=== PATIENT | male | born 1995 | race Caucasian/White ===

== ENCOUNTER → 2017-02-14 | Outpatient (CLI) | payer OTHER | LOC: BMCIMAGING 18:04 | PROVIDERS: ATTEND Family Medicine | DX: S62.002A Unspecified fracture of navicular [scaphoid] bone of left wrist, initial encounter for closed fracture (principal); V00.128A Other non-in-line roller-skating accident, initial encounter; Y93.51 Activity, roller skating (inline) and skateboarding ==

== ENCOUNTER → 2017-02-19 | Outpatient (CLI) | payer OTHER | LOC: BMCIMAGING 11:51 | PROVIDERS: ATTEND Orthopaedic Surgery Hand Surgery | DX: S62.025D Nondisplaced fracture of middle third of navicular [scaphoid] bone of left wrist, subsequent encounter for fracture with routine healing (principal) ==

== ENCOUNTER → 2017-03-05 | Outpatient (CLI) | payer OTHER | LOC: BMCIMAGING 11:41 | PROVIDERS: ATTEND Orthopaedic Surgery Hand Surgery | DX: S62.025D Nondisplaced fracture of middle third of navicular [scaphoid] bone of left wrist, subsequent encounter for fracture with routine healing (principal) ==

== ENCOUNTER → 2017-03-19 | Outpatient (CLI) | payer OTHER | LOC: BMCLAB 11:08 | PROVIDERS: ATTEND Orthopaedic Surgery Hand Surgery | DX: S62.025D Nondisplaced fracture of middle third of navicular [scaphoid] bone of left wrist, subsequent encounter for fracture with routine healing (principal) ==

== ENCOUNTER → 2017-04-08 | Outpatient (CLI) | payer OTHER | LOC: BMCIMAGING 14:49 | PROVIDERS: ATTEND Orthopaedic Surgery Hand Surgery | DX: S62.022D Displaced fracture of middle third of navicular [scaphoid] bone of left wrist, subsequent encounter for fracture with routine healing (principal) ==

== ENCOUNTER → 2017-04-29 | Outpatient (CLI) | payer OTHER | LOC: BMCIMAGING 13:46 | PROVIDERS: ATTEND Orthopaedic Surgery Hand Surgery | DX: Z09 Encounter for follow-up examination after completed treatment for conditions other than malignant neoplasm (principal); S62.025D Nondisplaced fracture of middle third of navicular [scaphoid] bone of left wrist, subsequent encounter for fracture with routine healing ==

== ENCOUNTER → 2017-06-03 | Outpatient (CLI) | payer OTHER | LOC: BMCIMAGING 11:34 | PROVIDERS: ATTEND Orthopaedic Surgery Hand Surgery | DX: S62.025D Nondisplaced fracture of middle third of navicular [scaphoid] bone of left wrist, subsequent encounter for fracture with routine healing (principal) ==

== ENCOUNTER 2017-08-29 21:23 | Emergency (ER) | payer OTHER ==
--- NOTE | 2017-08-29 21:36 | EDPHY ---
H & P Time Seen by Provider: 08/29/17 21:32 HPI/ROS: CHIEF COMPLAINT: Fatigue HISTORY OF PRESENT ILLNESS: The patient is a 21-year-old man who was at school and has been working hard and not sleeping much. He also started taking Benadryl over the last few days because of allergies. He has been taking 25 mg in the morning and at night. He also takes Adderall daily. He has not taken any abnormal doses of either of these but today was telling his RA that he was tired but also trying to get a lot done. His RA felt like he was wandering around the hallway and called the ambulance who brought him here. The patient has no complaints here and states that he just needs to go sleep. He has normal vital signs. He denies significant alcohol or drug ingestion. REVIEW OF SYSTEMS: Constitutional: denies: chills, fever, recent illness, recent injury EENTM: denies: blurred vision, double vision, nose congestion Respiratory: denies: cough, shortness of breath Cardiac: denies: chest pain, irregular heart rate, lightheadedness, palpitations Gastrointestinal/Abdominal: denies: abdominal pain, diarrhea, nausea, vomiting, blood streaked stools Genitourinary: denies: dysuria, frequency, hematuria, pain Musculoskeletal: denies: joint pain, muscle pain Skin: denies: lesions, rash, jaundice, bruising Neurological: See HPI denies: headache, numbness, paresthesia, tingling, dizziness, weakness Hematologic/Lymphatic: denies: blood clots, easy bleeding, easy bruising Immunologic/allergic: denies: HIV/AIDS, transplant EXAM: GENERAL: Well-appearing, well-nourished and in no acute distress. HEAD: Atraumatic, normocephalic. EYES: Pupils equal round and reactive to light, extraocular movements intact, sclera anicteric, conjunctiva are normal. ENT: TMs normal, nares patent, oropharynx clear without exudates. Moist mucous membranes. NECK: Normal range of motion, supple without lymphadenopathy or JVD. LUNGS: Breath sounds clear to auscultation bilaterally and equal. No wheezes rales or rhonchi. HEART: Regular rate and rhythm without murmurs, rubs or gallops. ABDOMEN: Soft, nontender, normoactive bowel sounds. No guarding, no rebound. No masses appreciated. BACK: No CVA tenderness, no spinal tenderness, step-offs or deformities EXTREMITIES: Normal range of motion, no pitting or edema. No clubbing or cyanosis. NEUROLOGICAL: Cranial nerves II through XII grossly intact. Normal speech, normal gait. 5/5 strength, normal movement in all extremities, normal sensation PSYCH: Normal mood, normal affect. SKIN: Warm, dry, normal turgor, no visible rashes or lesions. Source: Patient, EMS - Medical/Surgical History Hx Asthma: No Hx Chronic Respiratory Disease: No Hx Diabetes: No Hx Cardiac Disease: No Hx Renal Disease: No Hx Cirrhosis: No Hx Alcoholism: No Other PMH: ADD, allergies - Family History Significant Family History: No pertinent family hx - Social History Smoking Status: Never smoked Alcohol Use: Sober Drug Use: None Constitutional: Initial Vital Signs Temperature (C) 36.6 C 08/29/17 21:20 Heart Rate 90 08/29/17 21:20 Respiratory Rate 18 08/29/17 21:20 Blood Pressure 153/84 H 08/29/17 21:20 O2 Sat (%) 98 08/29/17 21:20 O2 Delivery Mode Room Air Allergies/Adverse Reactions: bee venom protein (honey bee) Allergy (Verified 08/29/17 21:38) Home Medications: Medication Instructions Recorded Amphet Asp and D/Amphet [Adderall 10 mg PO DAILY 08/29/17 10 MG (*)] Medical Decision Making ED Course/Re-evaluation: Patient is currently asymptomatic now. He does not think he needs to be here. I agree. He is stable vital signs. We offered to call his friends but he would prefer to take the bus. I recommended he take Zyrtec instead of Benadryl. Differential Diagnosis: Partial list of the Differential diagnosis considered include but were not limited to; fatigue, lack of sleep, medication reaction, allergies and although unlikely based on the history and physical exam, I also considered overdose, infection, trauma. I discussed these differential diagnoses and the plan with the patient as well as the usual and expected course. The patient understands that the diagnosis is provisional and that in medicine we are not always correct and that further workup is often warranted. Usual and customary warnings were given. All of the patient's questions were answered. The patient was instructed to return to the emergency department should the symptoms at all worsen or return, otherwise to followup with the physician as we discussed. Departure - Departure Disposition: Home, Routine, Self-Care Clinical Impression: Tiredness Condition: Fair Instructions: Cetirizine (By mouth), Fatigue (ED) Referrals: Patient,NotPresent [Primary Care Provider] - As per Instructions
[2017-08-29 21:40] VITALS: BP 153/84
== END 2017-08-29 21:46 | disposition home or self-care (01) ==
LOC: EDUNIT#
DX: R53.83 Other fatigue (principal)

== ENCOUNTER 2018-06-01 13:58 | Inpatient (IN) | payer OTHER ==
--- NOTE | 2018-06-01 14:17 | EDPHY ---
HPI/HX/ROS/PE/MDM Narrative: CHIEF COMPLAINT: AMS, vomiting. HISTORY OF PRESENT ILLNESS: 22 year old male arrives via EMS after his roommate found him altered and largely unresponsive in his room earlier today. He is covered in vomitus across his face and abdomen. It is unknown whether he consumed alcohol or drugs recently. He is responsive to painful stimuli, occasionally to verbal, but his only responses are "yeah" and "fuck". He seems to admit to alcohol use, though he seems to say "yeah" to most questions and is certainly not a reliable historian at this time. Patient is curled in a position, has is hands over his face or over his abdomen, seems to be protecting his face in his abdomen. Unable to obtain further history secondary to the patient's presentation. REVIEW OF SYSTEMS: Unable to obtain secondary to patient presentation. PAST MEDICAL HISTORY: Unknown. Patient does take Adderall. SOCIAL HISTORY: Unknown. VITAL SIGNS: Reviewed by me. 110/85, 22, heart rate 70, temperature 36.5 degrees. Rectal temperature obtained later is 36.9. GENERAL: Largely nonresponsive, occasional responses to painful/verbal stimuli, but patient does not give any verbal responses other than "yeah" and intermittent swear words. Laying in the curled position. HEENT: Dried vomitus across mouth and face. No obvious signs of trauma. Eyes: PERRL, will not allow me to evaluate pupillary response. No icterus, no injection. Mouth: dry mucous membranes, dry teeth. Neck: moves his head to avoid me looking into his eyes, supple with no adenopathy. LUNGS: Panting respirations. Clear to auscultation. CARDIAC: Regular rate and rhythm, no rubs, murmurs or gallops. ABDOMEN: Soft, seems tender, grimacing with abdominal palpation. Holding his arms over his abdomen. External genitalia is normal. EXTREMITIES: Pressure sores are present over left elbow and bilateral knees. No rash. NEURO: Responsive to painful stimuli. SKIN: Warm and dry, no rash. PSYCHIATRIC: Unable to assess. Portions of this note were transcribed by a medical concierge. I personally performed a history, physical exam, medical decision making, and confirmed accuracy of information the transcribed note. ED Course: 22 year old male arrives via EMS after being found unresponsive by his new roommate. HPI difficult to obtain, exam limited as he continues to be largely nonresponsive. Patient has dry vomitus across his mouth and abdomen. He has dry mucous membranes.and panting respirations. Seems abdominal tenderness on examination and intermittently is holding his head. He has pressure sores over his knees and elbows. Plan for CT head, CT abdomen/pelvis. Plan for labs including CBC, chemistries. Lactic acid elevated at 7.4. WBC elevated at 27,000. Head CT negative. Abdominal CT reported to me as showing free fluid in Morison' s pouch, appendix at 10 mm with an appendicolith, no abscess around the appendix , no fluid around the appendix. 15;30: Consulted with Dr. Santiago other regarding potential appendicitis as cause with the patient's vomiting, elevated white count. Still awaiting a urine tox screen. 15:45 Consulted with hospitalist service. Dr. Lora accepts admission for AMS. Dr. Granados in the emergency department to see the patient. The bedside ultrasound performed by myself demonstrates no gallstones although the gallbladder appears to be enlarged. Formal ultrasound ordered. 16:35 ultrasound reported to me by Dr. Pugh as demonstrating acalculous cholecystitis. Patient's gallbladder wall is 6 mm with surrounding fluid. 16:[address] Santiago regarding ultrasound. Dr. Santiago is on the phone with patient's family. At this point plan is for exploratory laparoscopic to further evaluate potential appendicitis verses intra-abdominal process verses acalculous cholecystitis. Please see Dr. Garcia notes. The patient's urine tox screen is negative for any drugs of abuse. Patient remains obtunded despite fluids. He continues to have tenderness in the abdomen. Given the patient's significant altered mental status, elevated white count, and no definitive diagnosis, lumbar puncture was discussed with the parents. Verbal consent was obtained. 18:55 Performed LP at bedside. Procedure: Lumbar puncture. Indication: Patient obtunded, light-sensitive. After verbal informed consent from the patient's parents, at bedside, explaining the risks including infection, bleeding, and neurologic damage, the patient was prepped and draped in the usual sterile fashion. The patient had received Fentanyl 50mcg IV. The back was anesthetized with 1% lidocaine with epinephrine. A gauge spinal needle was easily introduced at the L3-L4 interspace. Approximately 4 cc of cloudy fluid was obtained in four separate vials. Opening pressure was not obtained; the CSF did not appear to be under high pressure. Spinal needle introducer was replaced before withdrawing needle. There were no complications. The procedure was performed by myself. As soon as the cloudy fluid was obtained, patient had 2 g of ceftriaxone 1 g of vancomycin ordered. Patient also had 10 mg of dexamethasone ordered. Discussed at length with the family the patient's presentation, emergency department evaluation, and implications of the lumbar puncture. They tell me that he most likely had a meningococcal vaccination. Patient's course discussed with Dr. Levy. Initial Gram stain from the lab verbally reported to me by Jaja as showing diplococcus, gram positive. Patient received an additional L of normal saline. Lactic acid continues to be elevated at 5.9. Patient remains hemodynamically stable. At no point has he had hypotension. Severe Sepsis/Septic Shock Care Note The patient presents to the ED with elevated white count, vomiting, abdominal pain, and diagnosed as bacterial meningitis. The patient did have evidence of end-organ dysfunction and met criteria for severe sepsis. This condition was identified by myself at 1440 on the basis of an elevated white blood cell count and a lactic acid of 7.9. The patients vital signs are 127/99, 63, 20, 95%, afebrile. The patient has a venous lactic acid performed within 3 hours of the identification of severe sepsis which was found to be 7.9. The patient has blood cultures drawn and received ertapenem, vancomycin, ceftriaxone IV, per the severe sepsis treatment protocol. The initial lactate was elevated and rechecked within 6 hours of the identification time of severe sepsis and found to be: 5.6. The patient also met criteria for septic shock because of lactic acid greater than 4.0. The patient received a 30 mL/kg bolus within 3 hours. Patient was not hypotensive. Focused examination demonstrated 127/99, 63, 20, 95%, afebrile. Lungs are clear. Heart is regular. Brisk capillary refill. Normal peripheral pulses, skin is warm and dry. Critical care time spent by me, Dr. Martines exclusively with this patient was 45 min, exclusive of PA time and exclusive of procedures. The organ system at risk was neurologic and I gave antibiotics, performed a lumbar puncture, obtained a CT scan, consult did with Infectious Disease, provided supportive care to prevent worsening of the patients condition. Critical care time included obtaining history, performing a physical exam, bedside monitoring of interventions, collecting and interpreting tests and discussion with consultants but not including time spent performing procedures. MDM: After the history was obtained and physical exam performed, the following differential for the patient's altered mental status and vomiting was considered included but was not limited to hypoglycemia, electrolyte disturbances, intracranial hemorrhage, tumor, drug or alcohol intoxication, infection, meningitis, encephalitis. - Data Points Imaging Results: Imaging Impressions Head CT 06/01/18 14:25 Impression: 1. Normal CT brain without contrast. 2. Consider MRI of the brain, if there is continued clinical concern. Findings and recommendations discussed with Emergency Department physician, Ana Martines MD at 15:10 hour, 06/01/2018. Final report concurs with initial preliminary interpretation. Abdomen CT 06/01/18 14:26 Impression: 1. Thickened appendix up to 10 mm with appendicolith which may represent early acute appendicitis. 2. However, there is free fluid noted in Morison's pouch and pericholecystic region. Consider ultrasound of the gallbladder to exclude gallbladder pathology. 3. Possible hepatic edema without portal vein thrombosis or focal masses. 4. No bowel obstruction or pneumoperitoneum. Findings and recommendations discussed with Emergency Department physician, Ana Martines MD, at 1510 hour, 06/01/2018. Final report concurs with initial preliminary interpretation. Chest X-Ray 06/01/18 14:49 Impression: Normal. No pneumonia. Abdomen Ultrasound 06/01/18 15:18 Impression: Acalculus cholecystitis. Results called to Dr. Martines at 4:35 PM. Imaging: Discussed imaging studies w/ supervisor operations Radiologist, I viewed and interpreted images myself Laboratory Results: Laboratory Results 06/01/18 14:05 06/01/18 14:05 06/01/18 06/01/18 06/01/18 15:45 14:49 14:37 WBC RBC Hgb POC Hgb Hct POC Hct MCV MCH MCHC RDW Plt Count MPV Neut % (Auto) Lymph % (Auto) [place] % (Auto) Eos % (Auto) Baso % (Auto) Nucleat RBC Rel Count Absolute Neuts (auto) Absolute Lymphs (auto) Absolute Monos (auto) Absolute Eos (auto) Absolute Basos (auto) Absolute Nucleated RBC Immature Gran % Seg Neutrophils % Band Neutrophils % Lymphocytes % Monocytes % Eosinophils % Basophils % Metamyelocytes % Myelocytes % Promyelocytes % Blast Cells % Immature Gran # Absolute Seg Neuts Absolute Band Neuts Absolute Lymphocytes Absolute Monocytes Absolute Eosinophils Absolute Basophils Absolute Metamyelocyte Absolute Myelocytes Absolute Promyelocytes Absolute Plasma Cells RBC/WBC/PLT Morphology Atypical Lymphocytes Absolute Blast Cells Plasma Cells % Platelet Estimate Large Platelets PT REJ INR REJ APTT REJ VBG Lactic Acid 7.4 mmol/L H mmol/L (0.7-2.1) POC Sodium Sodium POC Potassium Potassium POC Chloride Chloride Carbon Dioxide Anion Gap POC BUN BUN Creatinine POC Creatinine Estimated GFR Glucose POC Glucose Calcium Magnesium Total Bilirubin Conjugated Bilirubin Unconjugated Bilirubin AST ALT Alkaline Phosphatase Creatine Kinase CK-MB (CK-2) Fraction CK-MB (CK-2) % Creatine Kinase Interp Total Protein Albumin Lipase Specimen Hemolysis Urine Color YELLOW Urine Appearance HAZY Urine pH 7.0 (5.0-7.5) Ur Specific [place] 1.029 (1.002-1.030) Urine Protein NEGATIVE (NEGATIVE) Urine Ketones TRACE H (NEGATIVE) Urine Blood 2+ H (NEGATIVE) Urine Nitrate NEGATIVE (NEGATIVE) Urine Bilirubin NEGATIVE (NEGATIVE) Urine Urobilinogen NEGATIVE EU EU (0.2-1.0) Ur Leukocyte Esterase NEGATIVE (NEGATIVE) Urine RBC 50-182 /hpf H /hpf (0-3) Urine WBC 1-3 /hpf /hpf (0-3) Ur Epithelial Cells NONE SEEN /lpf /lpf (NONE-1+) Amorphous Sediment PRESENT /hpf /hpf (NONE-1+) Urine Mucus TRACE /lpf /lpf (NONE-1+) Urine Glucose 2+ H (NEGATIVE) Urine Opiates Screen NEGATIVE (NEGATIVE) Urine Barbiturates NEGATIVE (NEGATIVE) Ur Phencyclidine Scrn NEGATIVE (NEGATIVE) Ur Amphetamine Screen NEGATIVE (NEGATIVE) U Benzodiazepines Scrn NEGATIVE (NEGATIVE) Urine Cocaine Screen NEGATIVE (NEGATIVE) U Marijuana (THC) Screen NEGATIVE (NEGATIVE) Ethyl Alcohol HIV 1&2 Antibody Miscellaneous Test 06/01/18 06/01/18 06/01/18 14:26 14:09 14:05 WBC RBC Hgb POC Hgb 18.4 gm/dL H gm/dL (13.7-17.5) Hct POC Hct 54 % H % (40-51) MCV MCH MCHC RDW Plt Count MPV Neut % (Auto) Lymph % (Auto) [place] % (Auto) Eos % (Auto) Baso % (Auto) Nucleat RBC Rel Count Absolute Neuts (auto) Absolute Lymphs (auto) Absolute Monos (auto) Absolute Eos (auto) Absolute Basos (auto) Absolute Nucleated RBC Immature Gran % Seg Neutrophils % Band Neutrophils % Lymphocytes % Monocytes % Eosinophils % Basophils % Metamyelocytes % Myelocytes % Promyelocytes % Blast Cells % Immature Gran # Absolute Seg Neuts Absolute Band Neuts Absolute Lymphocytes Absolute Monocytes Absolute Eosinophils Absolute Basophils Absolute Metamyelocyte Absolute Myelocytes Absolute Promyelocytes Absolute Plasma Cells RBC/WBC/PLT Morphology Atypical Lymphocytes Absolute Blast Cells Plasma Cells % Platelet Estimate Large Platelets PT INR APTT VBG Lactic Acid POC Sodium 142 mEq/L mEq/L (135-145) Sodium POC Potassium 4.4 mEq/L mEq/L (3.3-5.0) Potassium POC Chloride 103 mEq/L mEq/L (97-110) Chloride Carbon Dioxide Anion Gap POC BUN 8 mg/dL mg/dL (7-23) BUN Creatinine POC Creatinine 0.6 mg/dL L mg/dL (0.7-1.3) Estimated GFR Glucose POC Glucose 143 mg/dL H mg/dL (70-100) Calcium Magnesium Total Bilirubin Conjugated Bilirubin Unconjugated Bilirubin AST ALT Alkaline Phosphatase Creatine Kinase 261 IU/L H IU/L (0-224) CK-MB (CK-2) Fraction 2.28 ng/mL ng/mL (0.00-4.55) CK-MB (CK-2) % 0.9 % % (0.0-4.0) Creatine Kinase Interp NEGATIVE (NEGATIVE) Total Protein Albumin Lipase Specimen Hemolysis 127 Urine Color Urine Appearance Urine pH Ur Specific [place] Urine Protein Urine Ketones Urine Blood Urine Nitrate Urine Bilirubin Urine Urobilinogen Ur Leukocyte Esterase Urine RBC Urine WBC Ur Epithelial Cells Amorphous Sediment Urine Mucus Urine Glucose Urine Opiates Screen Urine Barbiturates Ur Phencyclidine Scrn Ur Amphetamine Screen U Benzodiazepines Scrn Urine Cocaine Screen U Marijuana (THC) Screen Ethyl Alcohol HIV 1&2 Antibody Pending Miscellaneous Test 06/01/18 06/01/18 06/01/18 14:05 14:05 14:05 WBC 27.42 10^3/uL H 10^3/uL (3.80-9.50) RBC 5.75 10^6/uL 10^6/uL (4.40-6.38) Hgb 17.7 g/dL H g/dL (13.7-17.5) POC Hgb Hct 52.0 % H % (40.0-51.0) POC Hct MCV 90.4 fL fL (81.5-99.8) MCH 30.8 pg pg (27.9-34.1) MCHC 34.0 g/dL g/dL (32.4-36.7) RDW 12.9 % % (11.5-15.2) Plt Count 164 10^3/uL 10^3/uL (150-400) MPV 10.3 fL fL (8.7-11.7) Neut % (Auto) Not Reported Lymph % (Auto) Not Reported [place] % (Auto) Not Reported Eos % (Auto) Not Reported Baso % (Auto) Not Reported Nucleat RBC Rel Count Not Reported Absolute Neuts (auto) Not Reported Absolute Lymphs (auto) Not Reported Absolute Monos (auto) Not Reported Absolute Eos (auto) Not Reported Absolute Basos (auto) Not Reported Absolute Nucleated RBC Not Reported Immature Gran % Not Reported Seg Neutrophils % 71.0 % % Band Neutrophils % 24.0 % % Lymphocytes % 1.0 % % Monocytes % 4.0 % % Eosinophils % 0.0 % % Basophils % 0.0 % % Metamyelocytes % 0.0 % % Myelocytes % 0.0 % % Promyelocytes % 0.0 % % Blast Cells % 0.0 % % Immature Gran # Not Reported Absolute Seg Neuts 19.47 10^3/uL H 10^3/uL (1.70-6.50) Absolute Band Neuts 6.58 10^3/uL H 10^3/uL (0.00-0.70) Absolute Lymphocytes 0.27 10^3/uL L 10^3/uL (1.00-3.00) Absolute Monocytes 1.10 10^3/uL H 10^3/uL (0.30-0.80) Absolute Eosinophils 0.00 10^3/uL L 10^3/uL (0.03-0.40) Absolute Basophils 0.00 10^3/uL L 10^3/uL (0.02-0.10) Absolute Metamyelocyte 0.00 10^3/mL 10^3/mL (0.00-0.00) Absolute Myelocytes 0.00 10^3/mL 10^3/mL (0.00-0.00) Absolute Promyelocytes 0.00 10^3/uL 10^3/uL (0.00-0.00) Absolute Plasma Cells 0.00 10^3/uL 10^3/uL (0.00-0.00) RBC/WBC/PLT Morphology NORMAL (NORMAL) Atypical Lymphocytes 1+ H Absolute Blast Cells 0.00 10^3/uL 10^3/uL (0.00-0.00) Plasma Cells % 0.0 % % Platelet Estimate ADEQUATE (ADEQ) Large Platelets PRESENT H PT INR APTT VBG Lactic Acid POC Sodium Sodium 140 mEq/L mEq/L (135-145) POC Potassium Potassium 4.2 mEq/L mEq/L (3.5-5.2) POC Chloride Chloride 103 mEq/L mEq/L (97-110) Carbon Dioxide 17 mEq/l L mEq/l (22-31) Anion Gap 20 mEq/L H mEq/L (6-14) POC BUN BUN 8 mg/dL mg/dL (7-23) Creatinine 0.7 mg/dL mg/dL (0.7-1.3) POC Creatinine Estimated GFR > 60 Glucose 134 mg/dL H mg/dL (70-100) POC Glucose Calcium 10.1 mg/dL mg/dL (8.5-10.4) Magnesium 1.6 mg/dL mg/dL (1.6-2.3) Total Bilirubin 2.6 mg/dL H mg/dL (0.1-1.4) Conjugated Bilirubin 0.6 mg/dL H mg/dL (0.0-0.5) Unconjugated Bilirubin 2.0 mg/dL H mg/dL (0.0-1.1) AST 50 IU/L IU/L (17-59) ALT 8 IU/L L IU/L (21-72) Alkaline Phosphatase 91 IU/L IU/L (38-126) Creatine Kinase CK-MB (CK-2) Fraction CK-MB (CK-2) % Creatine Kinase Interp Total Protein 8.3 g/dL H g/dL (6.3-8.2) Albumin 5.5 g/dL H g/dL (3.5-5.0) Lipase 30 IU/L IU/L (23-300) Specimen Hemolysis 109 Urine Color Urine Appearance Urine pH Ur Specific [place] Urine Protein Urine Ketones Urine Blood Urine Nitrate Urine Bilirubin Urine Urobilinogen Ur Leukocyte Esterase Urine RBC Urine WBC Ur Epithelial Cells Amorphous Sediment Urine Mucus Urine Glucose Urine Opiates Screen Urine Barbiturates Ur Phencyclidine Scrn Ur Amphetamine Screen U Benzodiazepines Scrn Urine Cocaine Screen U Marijuana (THC) Screen Ethyl Alcohol < 10 mg/dL mg/dL (0-10) HIV 1&2 Antibody Miscellaneous Test Cancelled 06/01/18 13:30 WBC RBC Hgb POC Hgb Hct POC Hct MCV MCH MCHC RDW Plt Count MPV Neut % (Auto) Lymph % (Auto) [place] % (Auto) Eos % (Auto) Baso % (Auto) Nucleat RBC Rel Count Absolute Neuts (auto) Absolute Lymphs (auto) Absolute Monos (auto) Absolute Eos (auto) Absolute Basos (auto) Absolute Nucleated RBC Immature Gran % Seg Neutrophils % Band Neutrophils % Lymphocytes % Monocytes % Eosinophils % Basophils % Metamyelocytes % Myelocytes % Promyelocytes % Blast Cells % Immature Gran # Absolute Seg Neuts Absolute Band Neuts Absolute Lymphocytes Absolute Monocytes Absolute Eosinophils Absolute Basophils Absolute Metamyelocyte Absolute Myelocytes Absolute Promyelocytes Absolute Plasma Cells RBC/WBC/PLT Morphology Atypical Lymphocytes Absolute Blast Cells Plasma Cells % Platelet Estimate Large Platelets PT 15.2 SEC H SEC (12.0-15.0) INR 1.18 H (0.83-1.16) APTT 32.1 SEC SEC (23.0-38.0) VBG Lactic Acid POC Sodium Sodium POC Potassium Potassium POC Chloride Chloride Carbon Dioxide Anion Gap POC BUN BUN Creatinine POC Creatinine Estimated GFR Glucose POC Glucose Calcium Magnesium Total Bilirubin Conjugated Bilirubin Unconjugated Bilirubin AST ALT Alkaline Phosphatase Creatine Kinase CK-MB (CK-2) Fraction CK-MB (CK-2) % Creatine Kinase Interp Total Protein Albumin Lipase Specimen Hemolysis Urine Color Urine Appearance Urine pH Ur Specific [place] Urine Protein Urine Ketones Urine Blood Urine Nitrate Urine Bilirubin Urine Urobilinogen Ur Leukocyte Esterase Urine RBC Urine WBC Ur Epithelial Cells Amorphous Sediment Urine Mucus Urine Glucose Urine Opiates Screen Urine Barbiturates Ur Phencyclidine Scrn Ur Amphetamine Screen U Benzodiazepines Scrn Urine Cocaine Screen U Marijuana (THC) Screen Ethyl Alcohol HIV 1&2 Antibody Miscellaneous Test Medications Given: Lorazepam (Ativan Injection) 0.5 - 1 mg IVP Q8HRS PRN PRN Reason: Anxiety, Unable to Take PO Stop: 07/20/19 16:31 Last Admin: 06/01/18 20:11 Dose: 0.5 mg Discontinued Medications Bupivacaine HCl/Epinephrine Bitart (Bupivacaine/Epi) Confirm Administered Dose 30 ml .ROUTE .STK-MED ONE Stop: 06/01/18 17:06 Last Admin: 06/01/18 22:01 Dose: Not Given Dexamethasone (Decadron Injection) 10 mg IVP ONCE ONE Stop: 06/01/18 18:53 Last Admin: 06/01/18 19:17 Dose: 10 mg Fentanyl (Sublimaze) 50 mcg IVP EDNOW ONE Stop: 06/01/18 16:07 Last Admin: 06/01/18 16:23 Dose: 50 mcg Sodium Chloride (Ns) 1,000 mls @ 0 mls/hr IV ONCE ONE; Wide Open PRN Reason: Protocol Stop: 06/01/18 14:28 Last Admin: 06/01/18 16:33 Dose: Not Given Sodium Chloride (Ns) 2,300 mls @ 4,600 mls/hr 30 ml/kg infuse over 30 min ( 2300 ml) IV EDNOW ONE PRN Reason: Protocol Stop: 06/01/18 15:19 Last Admin: 06/01/18 14:20 Dose: 2,300 mls Ertapenem 1 gm/ Sodium (Chloride) 100 mls @ 200 mls/hr IV EDNOW ONE PRN Reason: Protocol Stop: 06/01/18 15:48 Last Admin: 06/01/18 16:22 Dose: 100 mls Sodium Chloride (Ns) 2,300 mls @ 4,600 mls/hr 30 ml/kg infuse over 30 min ( 2300 ml) IV ONCE ONE Stop: 06/01/18 17:05 Last Admin: 06/01/18 17:02 Dose: Not Given Piperacillin/Tazobactam/Dextrose (Zosyn (Premix)) 100 mls @ 200 mls/hr IV Q6HRS MEI PRN Reason: Protocol Stop: 07/01/18 17:59 Last Admin: 06/01/18 22:02 Dose: Not Given Ceftriaxone Sodium 2 gm/ (Sodium Chloride) 50 mls @ 100 mls/hr IV EDNOW ONE PRN Reason: Protocol Stop: 06/01/18 19:19 Last Admin: 06/01/18 19:23 Dose: 50 mls Sodium Chloride (Ns) 1,000 mls @ 0 mls/hr IV ONCE ONE; Wide Open PRN Reason: Protocol Stop: 06/01/18 18:51 Last Admin: 06/01/18 19:17 Dose: 1,000 mls Vancomycin/Sodium Chloride (Vancomycin 1 Gm (Premix)) 250 mls @ 250 mls/hr IV EDNOW ONE PRN Reason: Protocol Stop: 06/01/18 19:50 Last Admin: 06/01/18 19:19 Dose: 250 mls Acyclovir 800 mg/ Dextrose 266 mls @ 250 mls/hr IV EDNOW ONE Stop: 06/01/18 20:28 Last Admin: 06/01/18 22:02 Dose: Not Given Lorazepam (Ativan Injection) 1 mg IVP EDNOW ONE Stop: 06/01/18 14:27 Last Admin: 06/01/18 16:33 Dose: Not Given Point of Care Test Results: Chemistry 06/01/18 14:09 POC Sodium 142 mEq/L mEq/L (135-145) POC Potassium 4.4 mEq/L mEq/L (3.3-5.0) POC Chloride 103 mEq/L mEq/L (97-110) POC BUN 8 mg/dL mg/dL (7-23) POC Creatinine 0.6 mg/dL L mg/dL (0.7-1.3) POC Glucose 143 mg/dL H mg/dL (70-100) ISTAT H&H 06/01/18 14:09 POC Hgb 18.4 gm/dL H gm/dL (13.7-17.5) POC Hct 54 % H % (40-51) General Time Seen by Provider: 06/01/18 14:13 Initial Vital Signs: Initial Vital Signs Temperature (C) 36.5 C 06/01/18 14:07 Heart Rate 70 06/01/18 14:07 Respiratory Rate 22 H 06/01/18 14:07 Blood Pressure 110/85 H 06/01/18 14:07 O2 Sat (%) 98 06/01/18 14:07 O2 Delivery Mode Room Air Allergies/Adverse Reactions: bee venom protein (honey bee) Allergy (Verified 08/29/17 21:38) Home Medications: Medication Instructions Recorded Unobtainable 06/01/18 Departure - Departure Disposition: [facility] Inpatient Acute Clinical Impression: Meningitis Altered mental status Qualifiers: Altered mental status type: delirium Qualified Code(s): R41.0 - Disorientation , unspecified Vomiting Qualifiers: Vomiting type: unspecified Vomiting Intractability: non-intractable Nausea presence: unspecified Qualified Code(s): R11.10 - Vomiting, unspecified Condition: Serious Report Scribed for: Ana Martines Report Scribed by: Analy Steen Date of Report: 06/01/18 Time of Report: 15:46
[2018-06-01] MEDS ORDERED: LORazepam 2 MG/ML INJ IVP ONE (14:26)
[2018-06-01] MEDS ORDERED: NS 1,000 ML IV ONE ×2 (14:27→18:50)
[2018-06-01 14:31] LABS: PLATELET COUNT 164 10^3/uL (150-400)
[2018-06-01] MEDS ORDERED: IOPAMIDOL (ISOVUE 370) 75 ML BTL IV ONE (14:35)
[2018-06-01] MEDS ORDERED: NS 2,300 ML IV ONE ×2 (14:50→16:36)
[2018-06-01] MEDS ORDERED: ERTAPENEM 1 GM in NS 100 ML IV ONE (15:19)
[2018-06-01 15:25] LABS: CREATINE KINASE 261 IU/L (0-224)
[2018-06-01 15:51] LABS: INR 1.18 (0.83-1.16); PROTIME(PATIENT) 15.2 SEC (12.0-15.0)
[2018-06-01] MEDS ORDERED: fentaNYL 100 MCG/2 ML INJ ONE (16:04)
[2018-06-01] MEDS ORDERED: fentaNYL 100 MCG/2 ML INJ IVP ONE (16:06)
[2018-06-01] MEDS ORDERED: PROMETHAZINE HCL 25 MG/ML INJ IVP PRN (16:32)
[2018-06-01] MEDS ORDERED: ONDANSETRON 4 MG/2 ML VIAL IVP PRN (16:32)
[2018-06-01] MEDS ORDERED: HYDROCODONE/APAP 5/325 TAB PO PRN (16:32)
[2018-06-01] MEDS ORDERED: LORazepam 2 MG/ML INJ IVP PRN (16:32)
[2018-06-01] MEDS ORDERED: ACETAMINOPHEN 650 MG SUPP PR PRN (16:32)
[2018-06-01] MEDS ORDERED: NS 1,000 ML IV SCH (16:45)
[2018-06-01] MEDS ORDERED: BUPIVACAINE/EPI 0.5% 30 ML SDV ONE (17:05)
--- NOTE | 2018-06-01 17:14 | PDGENHP ---
History and Physical - Chief Complaint obtunded, found down, ? abdominal pain - History of Present Illness 22yo M presents via EMS with AMS and abdominal pain. Per report, the patient was found down curled up in his dorm room by his new roommate attempting to introduce himself. Upon finding the patient, EMS was called and he was transported here. The patient is minimally conversive, he only says the F word to any questioning, he is covered in emesis. No other signs of trauma are apparent. He does have what appear to be some pressure ulcers on his lower extremities. History Information - Allergies/Home Medication List Allergies/Adverse Reactions: bee venom protein (honey bee) Allergy (Verified 08/29/17 21:38) Home Medications: Amphet Asp and D/Amphet [Adderall 10 MG (*)] 10 mg PO DAILY 08/29/17 [Last Taken Unknown] I have personally reviewed and updated: family history, medical history, social history, surgical history Past Medical History: per mom: multiple concussions, on Aderall for this. Takes no chronic medications. - Surgical History Additional surgical history: per mom: denies - Family History Positive for: non-pertinent - Social History Smoking Status: Never smoked Additional social history: per mom: student at , denies any EtOH or illicit drug use. Review of Systems Review of Systems: unobtainable Physical Exam Physical Exam: Temp Pulse Resp BP Pulse Ox 36.5 C 75 20 121/94 H 99 06/01/18 14:07 06/01/18 16:45 06/01/18 16:45 06/01/18 16:45 06/01/18 16:45 Constitutional: unkempt, other (covered in vomit) Eyes: PERRL, anicteric sclera, EOMI Ears, Nose, Mouth, Throat: other (dry mucus mebranes. ) Cardiovascular: regular rate and rhythym, no murmur, rub, or gallop Respiratory: no respiratory distress, no rales or rhonchi Gastrointestinal: other (abdomen is soft, no masses. He winces to deep palpation ) Genitourinary: no bladder fullness Skin: other (some pressure ulcers on knees) Musculoskeletal: other (curled up, QUINONES spontaneously) Neurologic: other (AOx0) Psychiatric: other (not interacting, not answering questions ) Lymph, Heme, Immunologic: no cervical LAD, no supraclavicular LAD Lab Data & Imaging Review 06/01/18 14:05 06/01/18 14:05 WBC 27.42 10^3/uL (3.80-9.50) H 06/01/18 14:05 RBC 5.75 10^6/uL (4.40-6.38) 06/01/18 14:05 Hgb 17.7 g/dL (13.7-17.5) H 06/01/18 14:05 POC Hgb 18.4 gm/dL (13.7-17.5) H 06/01/18 14:09 Hct 52.0 % (40.0-51.0) H 06/01/18 14:05 POC Hct 54 % (40-51) H 06/01/18 14:09 MCV 90.4 fL (81.5-99.8) 06/01/18 14:05 MCH 30.8 pg (27.9-34.1) 06/01/18 14:05 MCHC 34.0 g/dL (32.4-36.7) 06/01/18 14:05 RDW 12.9 % (11.5-15.2) 06/01/18 14:05 Plt Count 164 10^3/uL (150-400) 06/01/18 14:05 MPV 10.3 fL (8.7-11.7) 06/01/18 14:05 Neut % (Auto) Not Reported 06/01/18 14:05 Lymph % (Auto) Not Reported 06/01/18 14:05 [place] % (Auto) Not Reported 06/01/18 14:05 Eos % (Auto) Not Reported 06/01/18 14:05 Baso % (Auto) Not Reported 06/01/18 14:05 Nucleat RBC Rel Count Not Reported 06/01/18 14:05 Absolute Neuts (auto) Not Reported 06/01/18 14:05 Absolute Lymphs (auto) Not Reported 06/01/18 14:05 Absolute Monos (auto) Not Reported 06/01/18 14:05 Absolute Eos (auto) Not Reported 06/01/18 14:05 Absolute Basos (auto) Not Reported 06/01/18 14:05 Absolute Nucleated RBC Not Reported 06/01/18 14:05 Immature Gran % Not Reported 06/01/18 14:05 Seg Neutrophils % 71.0 % 06/01/18 14:05 Band Neutrophils % 24.0 % 06/01/18 14:05 Lymphocytes % 1.0 % 06/01/18 14:05 Monocytes % 4.0 % 06/01/18 14:05 Eosinophils % 0.0 % 06/01/18 14:05 Basophils % 0.0 % 06/01/18 14:05 Metamyelocytes % 0.0 % 06/01/18 14:05 Myelocytes % 0.0 % 06/01/18 14:05 Promyelocytes % 0.0 % 06/01/18 14:05 Blast Cells % 0.0 % 06/01/18 14:05 Immature Gran # Not Reported 06/01/18 14:05 Absolute Seg Neuts 19.47 10^3/uL (1.70-6.50) H 06/01/18 14:05 Absolute Band Neuts 6.58 10^3/uL (0.00-0.70) H 06/01/18 14:05 Absolute Lymphocytes 0.27 10^3/uL (1.00-3.00) L 06/01/18 14:05 Absolute Monocytes 1.10 10^3/uL (0.30-0.80) H 06/01/18 14:05 Absolute Eosinophils 0.00 10^3/uL (0.03-0.40) L 06/01/18 14:05 Absolute Basophils 0.00 10^3/uL (0.02-0.10) L 06/01/18 14:05 Absolute Metamyelocyte 0.00 10^3/mL (0.00-0.00) 06/01/18 14:05 Absolute Myelocytes 0.00 10^3/mL (0.00-0.00) 06/01/18 14:05 Absolute Promyelocytes 0.00 10^3/uL (0.00-0.00) 06/01/18 14:05 Absolute Plasma Cells 0.00 10^3/uL (0.00-0.00) 06/01/18 14:05 RBC/WBC/PLT Morphology NORMAL (NORMAL) 06/01/18 14:05 Atypical Lymphocytes 1+ H 06/01/18 14:05 Absolute Blast Cells 0.00 10^3/uL (0.00-0.00) 06/01/18 14:05 Plasma Cells % 0.0 % 06/01/18 14:05 Platelet Estimate ADEQUATE (ADEQ) 06/01/18 14:05 Large Platelets PRESENT H 06/01/18 14:05 PT REJ 06/01/18 14:49 INR REJ 06/01/18 14:49 APTT REJ 06/01/18 14:49 VBG Lactic Acid 5.6 mmol/L (0.7-2.1) H 06/01/18 16:15 POC Sodium 142 mEq/L (135-145) 06/01/18 14:09 Sodium 140 mEq/L (135-145) 06/01/18 14:05 POC Potassium 4.4 mEq/L (3.3-5.0) 06/01/18 14:09 Potassium 4.2 mEq/L (3.5-5.2) 06/01/18 14:05 POC Chloride 103 mEq/L (97-110) 06/01/18 14:09 Chloride 103 mEq/L (97-110) 06/01/18 14:05 Carbon Dioxide 17 mEq/l (22-31) L 06/01/18 14:05 Anion Gap 20 mEq/L (6-14) H 06/01/18 14:05 POC BUN 8 mg/dL (7-23) 06/01/18 14:09 BUN 8 mg/dL (7-23) 06/01/18 14:05 Creatinine 0.7 mg/dL (0.7-1.3) 06/01/18 14:05 POC Creatinine 0.6 mg/dL (0.7-1.3) L 06/01/18 14:09 Estimated GFR > 60 06/01/18 14:05 Glucose 134 mg/dL (70-100) H 06/01/18 14:05 POC Glucose 143 mg/dL (70-100) H 06/01/18 14:09 Calcium 10.1 mg/dL (8.5-10.4) 06/01/18 14:05 Magnesium 1.6 mg/dL (1.6-2.3) 06/01/18 14:05 Total Bilirubin 2.6 mg/dL (0.1-1.4) H 06/01/18 14:05 Conjugated Bilirubin 0.6 mg/dL (0.0-0.5) H 06/01/18 14:05 Unconjugated Bilirubin 2.0 mg/dL (0.0-1.1) H 06/01/18 14:05 AST 50 IU/L (17-59) 06/01/18 14:05 ALT 8 IU/L (21-72) L 06/01/18 14:05 Alkaline Phosphatase 91 IU/L (38-126) 06/01/18 14:05 Creatine Kinase 261 IU/L (0-224) H 06/01/18 14:26 CK-MB (CK-2) Fraction 2.28 ng/mL (0.00-4.55) 06/01/18 14:26 CK-MB (CK-2) % 0.9 % (0.0-4.0) 06/01/18 14:26 Creatine Kinase Interp NEGATIVE (NEGATIVE) 06/01/18 14:26 Total Protein 8.3 g/dL (6.3-8.2) H 06/01/18 14:05 Albumin 5.5 g/dL (3.5-5.0) H 06/01/18 14:05 Lipase 30 IU/L (23-300) 06/01/18 14:05 Specimen Hemolysis 127 06/01/18 14:26 Urine Color YELLOW 06/01/18 15:45 Urine Appearance HAZY 06/01/18 15:45 Urine pH 7.0 (5.0-7.5) 06/01/18 15:45 Ur Specific [place] 1.029 (1.002-1.030) 06/01/18 15:45 Urine Protein NEGATIVE (NEGATIVE) 06/01/18 15:45 Urine Ketones TRACE (NEGATIVE) H 06/01/18 15:45 Urine Blood 2+ (NEGATIVE) H 06/01/18 15:45 Urine Nitrate NEGATIVE (NEGATIVE) 06/01/18 15:45 Urine Bilirubin NEGATIVE (NEGATIVE) 06/01/18 15:45 Urine Urobilinogen NEGATIVE EU (0.2-1.0) 06/01/18 15:45 Ur Leukocyte Esterase NEGATIVE (NEGATIVE) 06/01/18 15:45 Urine RBC 50-182 /hpf (0-3) H 06/01/18 15:45 Urine WBC 1-3 /hpf (0-3) 06/01/18 15:45 Ur Epithelial Cells NONE SEEN /lpf (NONE-1+) 06/01/18 15:45 Amorphous Sediment PRESENT /hpf (NONE-1+) 06/01/18 15:45 Urine Mucus TRACE /lpf (NONE-1+) 06/01/18 15:45 Urine Glucose 2+ (NEGATIVE) H 06/01/18 15:45 Urine Opiates Screen NEGATIVE (NEGATIVE) 06/01/18 15:45 Urine Barbiturates NEGATIVE (NEGATIVE) 06/01/18 15:45 Ur Phencyclidine Scrn NEGATIVE (NEGATIVE) 06/01/18 15:45 Ur Amphetamine Screen NEGATIVE (NEGATIVE) 06/01/18 15:45 U Benzodiazepines Scrn NEGATIVE (NEGATIVE) 06/01/18 15:45 Urine Cocaine Screen NEGATIVE (NEGATIVE) 06/01/18 15:45 U Marijuana (THC) Screen NEGATIVE (NEGATIVE) 06/01/18 15:45 Ethyl Alcohol < 10 mg/dL (0-10) 06/01/18 14:05 Visualized and Interpreted imaging results: Yes Interpretation: CT: enlarged appendix c appendicolith, some fluid around GB. US : enlarged GBW, no stones, GB surrounded by fluid Assessment & Plan Assessment: obtundation, abdominal pain ? appendicitis, cholecystitis Plan: Really unclear picture as to what is going on. This is not classic presentation of either cholecystitis or appendicitis. I reviewed the images with the radiologist and dont see any other apparent findings. - continue resuscitation, IM admit to the ICU appropriate - Given no clear source and concerning imaging will likely take to OR for exploration - Called mom, she reports that Austin is a clean kid without substance abuse history, or depression or SI.
[2018-06-01] MEDS ORDERED: PIPERACILLIN/TAZO 4.5 GM/DEX 100 ML IV SCH (18:00)
--- NOTE | 2018-06-01 18:39 | PDANEPAE ---
ANE History of Present Illness Pt found in dorm obtunded. Emesis on body. Surgery considering exploratory laparotomy ANE Past Medical History - Cardiovascular History Hx Hypertension: No Hx Arrhythmias: No Hx Chest Pain: No Hx Coronary Artery / Peripheral Vascular Disease: No Hx CHF / Valvular Disease: No Hx Palpitations: No - Pulmonary History Hx COPD: No Hx Asthma/Reactive Airway Disease: No Hx Recent Upper Respiratory Infection: No Hx Oxygen in Use at Home: No - Endocrine History Hx Diabetes: No ANE Review of Systems Review of Systems: - Exercise capacity METS (RN): 4 METS ANE Patient History - Allergies Allergies/Adverse Reactions: bee venom protein (honey bee) Allergy (Verified 08/29/17 21:38) - Home Medications Home Medications: Amphet Asp and D/Amphet [Adderall 10 MG (*)] 10 mg PO DAILY 08/29/17 [Last Taken Unknown] - Smoking Hx Smoking Status: Never smoked ANE Labs/Vital Signs - Labs Result Diagrams: 06/01/18 14:05 06/01/18 14:05 - Vital Signs Blood Pressure: 113/84 Heart Rate: 89 Respiratory Rate: 20 O2 Sat (%): 98 Height: 170.18 cm Weight: 77.111 kg ANE Physical Exam - Airway Neck exam: FROM - Pulmonary Pulmonary: no respiratory distress, no rales or rhonchi - Cardiovascular Cardiovascular: regular rate and rhythym, no murmur, rub, or gallop - ASA Status ASA Status: II ANE Anesthesia Plan Anesthesia Plan: general endotracheal anesthesia (Requested LP consideration before surgury. LP done cloudy fluid case cancelled)
[2018-06-01] MEDS ORDERED: cefTRIAXone 1 GM/DEXTROSE 1 GM/50 ML BAG IV ONE (18:46)
[2018-06-01] MEDS ORDERED: VANCOMYCIN HCL/NORMAL SALINE 250 ML IV ONE (18:51)
[2018-06-01] MEDS ORDERED: DEXAMETHASONE 10 MG/ML VIAL IVP ONE (18:52)
[2018-06-01] MEDS ORDERED: ACYCLOVIR 800 MG in D5W 250 ML IV ONE (19:25)
--- NOTE | 2018-06-01 20:47 | CPEKG ---
Test Reason : OPEN Blood Pressure : / mmHG Vent. Rate : 076 BPM Atrial Rate : 076 BPM P-R Int : 145 ms QRS Dur : 087 ms QT Int : 372 ms P-R-T Axes : -51 082 079 degrees QTc Int : 419 ms Sinus or ectopic atrial rhythm ST elev, probable normal early repol pattern Confirmed by Ana Martines ([id number]) on 06/01/2018 8:47:05 PM Referred By: Confirmed By:Ana Martines
--- NOTE | 2018-06-01 20:53 | PDGENHP ---
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 Initially no further information was available on this patient, however eventually family were contacted who noted that patient had been complaining to his brother yesterday morning that his whole body hurt and had otherwise been in his usual state of health. Family notes that he does not use drugs or have any history of depression and they do not believe that he would have overdosed on anything. Evaluation in the ER noted patient to be completely obtunded, withdrawing from pain and occasionally groaning but otherwise not interactive and just lying on his side. He was noted to be tender abdominally in the ER and therefore a CT scan was obtained concerning for appendicitis and possible cholecystitis, f/u abd US confirming e/o acalculous cholecystitis. Surgery planned initially, however on further evaluation with family and anesthesia concerns raised for other etiology for his presentation especially given that imaging was rather benign and this would be an unusual presentation for appendicitis. Consideration for meningitis raised and LP performed confirming bacterial meningitis. History Information - Allergies/Home Medication List Allergies/Adverse Reactions: bee venom protein (honey bee) Allergy (Verified 08/29/17 21:38) Home Medications: Amphet Asp and D/Amphet [Adderall 10 MG (*)] 10 mg PO DAILY 08/29/17 [Last Taken Unknown] I have personally reviewed and updated: family history, medical history, social history, surgical history Past Medical History: per mom: multiple concussions, on Aderall for this. Takes no chronic medications. - Past Medical History psychiatric history (ADHD) - Surgical History Additional surgical history: per mom: denies - Family History Positive for: non-pertinent - Social History Smoking Status: Never smoked Alcohol Use: Occasionally Drug Use: None Additional social history: per mom: student at , denies any EtOH or illicit drug use. Review of Systems Review of Systems: ROS: 10pt was reviewed & negative except for what was stated in HPI & below Physical Exam Physical Exam: Temp Pulse Resp BP Pulse Ox 37.6 C 77 22 H 129/88 H 97 06/01/18 19:35 06/01/18 19:35 06/01/18 19:35 06/01/18 19:35 06/01/18 19:35 Constitutional: appears nourished, uncomfortable Eyes: PERRL, anicteric sclera Ears, Nose, Mouth, Throat: ears appear normal, dry mucous membranes Cardiovascular: regular rate and rhythym, no murmur, rub, or gallop, No edema Respiratory: no respiratory distress, no rales or rhonchi, clear to auscultation Gastrointestinal: normoactive bowel sounds, soft, non-tender abdomen Genitourinary: no bladder tenderness Skin: warm, normal color Musculoskeletal: other (moving all 4 spontaneously), No asymmetric calves Neurologic: CN II-XII Intact, other (withdraws from pain, does not open eyes, not following commands), No AAOx3 Psychiatric: encephalopathic Lab Data & Imaging Review 06/01/18 14:05 06/01/18 14:05 WBC 27.42 10^3/uL (3.80-9.50) H 06/01/18 14:05 RBC 5.75 10^6/uL (4.40-6.38) 06/01/18 14:05 Hgb 17.7 g/dL (13.7-17.5) H 06/01/18 14:05 POC Hgb 18.4 gm/dL (13.7-17.5) H 06/01/18 14:09 Hct 52.0 % (40.0-51.0) H 06/01/18 14:05 POC Hct 54 % (40-51) H 06/01/18 14:09 MCV 90.4 fL (81.5-99.8) 06/01/18 14:05 MCH 30.8 pg (27.9-34.1) 06/01/18 14:05 MCHC 34.0 g/dL (32.4-36.7) 06/01/18 14:05 RDW 12.9 % (11.5-15.2) 06/01/18 14:05 Plt Count 164 10^3/uL (150-400) 06/01/18 14:05 MPV 10.3 fL (8.7-11.7) 06/01/18 14:05 Neut % (Auto) Not Reported 06/01/18 14:05 Lymph % (Auto) Not Reported 06/01/18 14:05 [place] % (Auto) Not Reported 06/01/18 14:05 Eos % (Auto) Not Reported 06/01/18 14:05 Baso % (Auto) Not Reported 06/01/18 14:05 Nucleat RBC Rel Count Not Reported 06/01/18 14:05 Absolute Neuts (auto) Not Reported 06/01/18 14:05 Absolute Lymphs (auto) Not Reported 06/01/18 14:05 Absolute Monos (auto) Not Reported 06/01/18 14:05 Absolute Eos (auto) Not Reported 06/01/18 14:05 Absolute Basos (auto) Not Reported 06/01/18 14:05 Absolute Nucleated RBC Not Reported 06/01/18 14:05 Immature Gran % Not Reported 06/01/18 14:05 Seg Neutrophils % 71.0 % 06/01/18 14:05 Band Neutrophils % 24.0 % 06/01/18 14:05 Lymphocytes % 1.0 % 06/01/18 14:05 Monocytes % 4.0 % 06/01/18 14:05 Eosinophils % 0.0 % 06/01/18 14:05 Basophils % 0.0 % 06/01/18 14:05 Metamyelocytes % 0.0 % 06/01/18 14:05 Myelocytes % 0.0 % 06/01/18 14:05 Promyelocytes % 0.0 % 06/01/18 14:05 Blast Cells % 0.0 % 06/01/18 14:05 Immature Gran # Not Reported 06/01/18 14:05 Absolute Seg Neuts 19.47 10^3/uL (1.70-6.50) H 06/01/18 14:05 Absolute Band Neuts 6.58 10^3/uL (0.00-0.70) H 06/01/18 14:05 Absolute Lymphocytes 0.27 10^3/uL (1.00-3.00) L 06/01/18 14:05 Absolute Monocytes 1.10 10^3/uL (0.30-0.80) H 06/01/18 14:05 Absolute Eosinophils 0.00 10^3/uL (0.03-0.40) L 06/01/18 14:05 Absolute Basophils 0.00 10^3/uL (0.02-0.10) L 06/01/18 14:05 Absolute Metamyelocyte 0.00 10^3/mL (0.00-0.00) 06/01/18 14:05 Absolute Myelocytes 0.00 10^3/mL (0.00-0.00) 06/01/18 14:05 Absolute Promyelocytes 0.00 10^3/uL (0.00-0.00) 06/01/18 14:05 Absolute Plasma Cells 0.00 10^3/uL (0.00-0.00) 06/01/18 14:05 RBC/WBC/PLT Morphology NORMAL (NORMAL) 06/01/18 14:05 Atypical Lymphocytes 1+ H 06/01/18 14:05 Absolute Blast Cells 0.00 10^3/uL (0.00-0.00) 06/01/18 14:05 Plasma Cells % 0.0 % 06/01/18 14:05 Platelet Estimate ADEQUATE (ADEQ) 06/01/18 14:05 Large Platelets PRESENT H 06/01/18 14:05 PT REJ 06/01/18 14:49 INR REJ 06/01/18 14:49 APTT REJ 06/01/18 14:49 VBG Lactic Acid 5.6 mmol/L (0.7-2.1) H 06/01/18 16:15 POC Sodium 142 mEq/L (135-145) 06/01/18 14:09 Sodium 140 mEq/L (135-145) 06/01/18 14:05 POC Potassium 4.4 mEq/L (3.3-5.0) 06/01/18 14:09 Potassium 4.2 mEq/L (3.5-5.2) 06/01/18 14:05 POC Chloride 103 mEq/L (97-110) 06/01/18 14:09 Chloride 103 mEq/L (97-110) 06/01/18 14:05 Carbon Dioxide 17 mEq/l (22-31) L 06/01/18 14:05 Anion Gap 20 mEq/L (6-14) H 06/01/18 14:05 POC BUN 8 mg/dL (7-23) 06/01/18 14:09 BUN 8 mg/dL (7-23) 06/01/18 14:05 Creatinine 0.7 mg/dL (0.7-1.3) 06/01/18 14:05 POC Creatinine 0.6 mg/dL (0.7-1.3) L 06/01/18 14:09 Estimated GFR > 60 06/01/18 14:05 Glucose 134 mg/dL (70-100) H 06/01/18 14:05 POC Glucose 143 mg/dL (70-100) H 06/01/18 14:09 Calcium 10.1 mg/dL (8.5-10.4) 06/01/18 14:05 Magnesium 1.6 mg/dL (1.6-2.3) 06/01/18 14:05 Total Bilirubin 2.6 mg/dL (0.1-1.4) H 06/01/18 14:05 Conjugated Bilirubin 0.6 mg/dL (0.0-0.5) H 06/01/18 14:05 Unconjugated Bilirubin 2.0 mg/dL (0.0-1.1) H 06/01/18 14:05 AST 50 IU/L (17-59) 06/01/18 14:05 ALT 8 IU/L (21-72) L 06/01/18 14:05 Alkaline Phosphatase 91 IU/L (38-126) 06/01/18 14:05 Creatine Kinase 261 IU/L (0-224) H 06/01/18 14:26 CK-MB (CK-2) Fraction 2.28 ng/mL (0.00-4.55) 06/01/18 14:26 CK-MB (CK-2) % 0.9 % (0.0-4.0) 06/01/18 14:26 Creatine Kinase Interp NEGATIVE (NEGATIVE) 06/01/18 14:26 Total Protein 8.3 g/dL (6.3-8.2) H 06/01/18 14:05 Albumin 5.5 g/dL (3.5-5.0) H 06/01/18 14:05 Lipase 30 IU/L (23-300) 06/01/18 14:05 Procalcitonin 17.36 ng/mL (0.02-0.10) H 06/01/18 18:05 Specimen Hemolysis 127 06/01/18 14:26 Urine Color YELLOW 06/01/18 15:45 Urine Appearance HAZY 06/01/18 15:45 Urine pH 7.0 (5.0-7.5) 06/01/18 15:45 Ur Specific [place] 1.029 (1.002-1.030) 06/01/18 15:45 Urine Protein NEGATIVE (NEGATIVE) 06/01/18 15:45 Urine Ketones TRACE (NEGATIVE) H 06/01/18 15:45 Urine Blood 2+ (NEGATIVE) H 06/01/18 15:45 Urine Nitrate NEGATIVE (NEGATIVE) 06/01/18 15:45 Urine Bilirubin NEGATIVE (NEGATIVE) 06/01/18 15:45 Urine Urobilinogen NEGATIVE EU (0.2-1.0) 06/01/18 15:45 Ur Leukocyte Esterase NEGATIVE (NEGATIVE) 06/01/18 15:45 Urine RBC 50-182 /hpf (0-3) H 06/01/18 15:45 Urine WBC 1-3 /hpf (0-3) 06/01/18 15:45 Ur Epithelial Cells NONE SEEN /lpf (NONE-1+) 06/01/18 15:45 Amorphous Sediment PRESENT /hpf (NONE-1+) 06/01/18 15:45 Urine Mucus TRACE /lpf (NONE-1+) 06/01/18 15:45 Urine Glucose 2+ (NEGATIVE) H 06/01/18 15:45 CSF Tube Number 4 06/01/18 18:31 CSF Appearance CLOUDY (CLEAR) H 06/01/18 18:31 CSF Color WHITE (COLORLESS) H 06/01/18 18:31 CSF Supernatant COLORLESS (COLORLESS) 06/01/18 18:31 CSF WBC 78336 /mm3 (0-5) H 06/01/18 18:31 CSF RBC 171 /mm3 (0-0) H 06/01/18 18:31 CSF Neutrophils % Not Reported 06/01/18 18:31 CSF Lymphocytes % 5 % (0-100) 06/01/18 18:31 CSF Glucose 44 mg/dL (50-75) L 06/01/18 18:31 CSF Total Protein 539 mg/dL (12-60) H 06/01/18 18:31 Urine Opiates Screen NEGATIVE (NEGATIVE) 06/01/18 15:45 Urine Barbiturates NEGATIVE (NEGATIVE) 06/01/18 15:45 Ur Phencyclidine Scrn NEGATIVE (NEGATIVE) 06/01/18 15:45 Ur Amphetamine Screen NEGATIVE (NEGATIVE) 06/01/18 15:45 U Benzodiazepines Scrn NEGATIVE (NEGATIVE) 06/01/18 15:45 Urine Cocaine Screen NEGATIVE (NEGATIVE) 06/01/18 15:45 U Marijuana (THC) Screen NEGATIVE (NEGATIVE) 06/01/18 15:45 Ethyl Alcohol < 10 mg/dL (0-10) 06/01/18 14:05 Miscellaneous Test Cancelled 06/01/18 14:05 Visualized and Interpreted Chest x-ray results: Yes Chest X-Ray results: no infiltrate Visualized and Interpreted imaging results: Yes Interpretation: head CT: negative. Abdominal CT: ? early appendicitis, fluid around GB. Abd US: acalculous cholecystitis Visualized and Interpreted EKG results: Yes EKG Interpretation: Positive for: normal sinsus rhythm, ST elevation (early repol) Assessment & Plan Assessment: 22 yo M with no significant PMH presenting with acute encephalopathy found to be 2/2 bacterial meningitis # bacterial meningitis: started empirically on vanc/ceftriaxone and initially acyclovir though given initial culture data ID did not feel this needed to be continued currently--discussed results with micro lab and they will be following cultures as available. # metabolic encephalopathy: in the setting of bacterial meningitis as above and severe, has been started on abx and given dexamethasone x 1, will determine whether or not to continue when more culture data available. Patient is protecting his airway currently and withdrawing to pain, transferring to ICU for close monitoring. # septic shock: elevated wbc, end organ dysfunction and initial lactate of > 7 that has trended down s/p fluid resuscitation, will continue to trend, continue IVF/abx as above, MAPs have been high so no need for pressors currently # ? appendicitis: in review with surgery, imaging findings are relatively benign and unlikely to be the true etiology for his presentation given alternative explanation, will monitor abdominal pain, may require surgery at some point when improved from above # acalculous cholecystitis: in the setting of meningitis as above, monitoring, as above plan for surgery deferred at this point given above # hyperbilirubinemia: largely unconjugated and with otherwise normal LFTs, ? due to sepsis versus [place], will trend # polycythemia: likely due to volume depletion, will trend # IP status, critically ill requiring ICU level care, > 60 min critical care time spent with this patient in interpreting labs/imaging and coordinating care with surgery, ER, anesthesia, further hx obtained from family present at bedside
[2018-06-01 22:33] LABS: HIV TYPE 1 AND 2 NEGATIVE (NEGATIVE)
[2018-06-01] MEDS: HYDROmorphONE/DILAUDID 1 MG/ML INJ IVP PRN (23:07)
[2018-06-02] MEDS ORDERED: AMPICILLIN SODIUM 2 GM in NS 100 ML IV SCH
[2018-06-02] MEDS: HYDROmorphONE/DILAUDID 1 MG/ML INJ IVP PRN ×6 (04:18→20:09)
[2018-06-02] MEDS: VANCOMYCIN 1.25 GM in NS 250 ML IV SCH ×3 (04:19→19:59)
[2018-06-02 04:39] LABS: PLATELET COUNT 121 10^3/uL (150-400)
[2018-06-02] MEDS ORDERED: MAGNESIUM SULF 2 GM/WATER 50 ML IV ONE (05:29)
[2018-06-02] MEDS: FLUCONAZOLE IV SCH ×2 (05:52→07:34)
[2018-06-02] MEDS: NACL IV SCH ×2 (05:52→07:34)
--- NOTE | 2018-06-02 07:45 | GCON ---
INPATIENT INFECTIOUS DISEASE CONSULTATION REFERRING PHYSICIAN: Ana Martines MD REASON FOR REFERRAL: Meningitis. 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 Patient was apparently conversing with his twin brother in the evening prior to admission and told his twin brother that he was achy and not feeling well and wanted to go to bed. Patient was transported emergently to [facility] ER. He was obtunded and unable to communicate specific symptoms. Initial concerns were abdominal in natu re. Abdominal CT performed which showed a possible thickened appendix. No other findings. CT scan of the head without contrast was normal. Chest x-ray was normal. Spinal tap was performed in the em ergency room which revealed significant neutrophilic pleocytosis of over 10,000 cells. Total protein was significantly elevated. Glucose was slightly low. Patient was started on empiric vancomycin and ceftriaxone. Gram stain of the CSF showed a field of p olymorphonuclear white cells, but no clear organism. There was 1 set of diplococci gram-positives wh ich were seen in 5 slides. There were also numerous other much larger structures that stained darkly gram-positive that could be consistent with yeast. HIV test was sent which was negative. The spina l fluid was sent urgently to [facility] for a CSF PCR panel. That panel returned at about 3 :00 a.m. and was negative. In the meantime, the patient was transported up to the ICU after receivin g initial antibiotics, as well as dexamethasone. Clinically, the patient was initially combative, bu t gradually improved and this morning is able to answer some questions. He still grabs the back of h is neck and complains of headache. PAST MEDICAL HISTORY: Negative. PAST SURGICAL HISTORY: No known surgeries. ANTIBIOTICS: 1. Vancomycin 1.25 g IV q.8 hours. 2. Ceftriaxone 2 g IV q.12 hours. 3. Fluconazole 800 mg IV x1. ALLERGIES: Patient is allergic to bee venom. SOCIAL HISTORY: Patient was raised in [place], [place]. He has a twin brother. No known tobacco , alcohol, or drug use, although by recent social history he was out drinking on Friday night with fr iends. Patient did in the recent weeks go up to a cabin locally where brush was being cleared by him , his brother, and father. FAMILY HISTORY: Reviewed but noncontributory. REVIEW OF SYSTEMS: Unable to perform secondary to patient mental status. PHYSICAL EXAMINATION: VITAL SIGNS: Temperature maximum is 37.6, temperature current is 37.6, heart rate is 55, respiratory rate is 19, blood pressure is 98/59. GENERAL: Patient is a well-formed, wel l-nourished young male who is quite toxic in appearance. He is intermittently alert, but not oriente d. HEENT: Normocephalic, atraumatic. No scleral icterus. No oral lesion or drainage from the nare s. EYES: Lids and conjunctivae are within normal limits. Pupils are equal and round bilaterally. NECK: Soft, but significant meningismus. LUNGS: Clear to auscultation bilaterally with good effort . HEART: Regular rate and rhythm. Borderline bradycardia. No significant peripheral edema. ABDOM EN: Soft, nontender. No masses. SKIN: Warm and dry to the touch. No rash noted. MUSCULOSKELETAL : No muscle belly tenderness is noted. No joint line effusion or arthritis is seen. NEURO: Unable to assess secondary patient mental status exam. LABORATORY DATA: Patient this morning has a white blood cell count of 24.04, hemoglobin of 14.6, hem atocrit of 40.8, platelet count of 121. Differential is still left-shifted with 78% mature segmented neutrophils, 14% band forms. Serum chemistries on 06/02/2018, show sodium 138, potassium 4.2, chlor ibeth 109, bicarbonate 21, BUN 7, creatinine 0.6. Total bilirubin is 1.4, unconjugated 1.2, AST 30, AL T 28, alkaline phosphatase 55. Procalcitonin level on admission was 17.4. CSF data from 06/01/2018, shows tube 1 with 10,186 white cells, 171 white red cells. Tube 4 has 11,528 white cells, 458 red c ells. Differential on that white cell count is 95% neutrophils. CSF glucose is 44. CSF total prote in is 539. HIV 1 and 2 antibodies are negative. Tox screen is negative. Sent out PCR CSF test to [facility] in [place] is negative. MICROBIOLOGIC DATA: Patient has blood cultures dated 06/01/2018, which are pending. Urine culture d ated 06/01/2018, is also pending. CSF from 06/01/2018: Gram stain read as 4+ polymorphonuclear whit e cells, no organisms. Personally reviewed by myself last night. One single diplococci set seen. M ultiple other larger gram-positive forms possibly consistent with yeast. ASSESSMENT: Meningitis. The cell counts are most consistent with acute bacterial meningitis and I w ould have expected clear bacteria to be seen on Gram stain. However, other than one particular coupl et, there are not significant amounts of bacteria seen on the rest of the fluid that was stained. Re gardless, patient is not clearly immunocompromised. He has no reason to be at risk for fungal pneumo ervin. Dimorphic fungi are not common in this area. He has no clear exposures to any other places. P rosana to continue the empiric vancomycin and ceftriaxone. We will continue fluconazole at 800 mg IV q. 24 hours. We will set up the spinal fluid for fungal culture, as well as routine culture. We will d iscuss with colleagues about other options for testing. Encouraged somewhat by the patient's clinica l improvement overnight. PLAN: 1. Continue antibiotics and antifungals as above. 2. Follow clinical course. 3. Follow up on culture data. /[id number]/MODL
--- NOTE | 2018-06-02 09:54 | ASMTCASEMG ---
Living Arrangements What is your living Answers: With Other (Not Family) arrangement? Who do you live with? Type Of Residence What kind of residence do Answers: House you live in? Discharge Plan Comments Coordination Status Comments Notes: Patient is a 22yo single male who was found down by his roommate and brought to the hospital. Patient is being admitted for acute encephalopathy found to be 2/2 bacterial meningitis. 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 He lists his mother, Kaylee, as his next of kin. 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 CM will follow. Date Signed: 06/02/2018 09:53 AM Electronically Signed By:Radha Poon LCSW
--- NOTE | 2018-06-02 09:59 | SOAPPROG ---
SOAP Progress Note Assessment/Plan: Assessment: 22yo M c meningitis, unclear source - alert and awake enough this AM to communicate. - no abd pain, c/o neck pain - abdomen is soft, nontender - signing off, let me know if he needs a surgeon but at this point has pretty firm diagnosis and is improving with treatment. Plan: 06/02/18 09:57 Subjective: more alert but still sleepy, c/o neck pain today Objective: Vital Signs Temp Pulse Resp BP Pulse Ox 36.5 C 64 12 104/47 L 98 06/02/18 07:00 06/02/18 09:47 06/02/18 09:47 06/02/18 09:47 06/02/18 09:47 Microbiology 06/01/18 18:31 Gram Stain - Final Cerebral Spinal Fluid Laboratory Results 06/02/18 04:30 06/02/18 04:30 06/01/18 06/02/18 06/03/18 05:59 05:59 05:59 Intake Total 6803 Output Total 9755 Balance 2268 PT REJ 06/01/18 14:49 INR REJ 06/01/18 14:49 ICD10 Worksheet Patient Problems: Problems Problem Status Onset Altered mental status Acute Meningitis Acute Vomiting Acute
--- NOTE | 2018-06-02 10:11 | PDMN ---
Medical Necessity Medical necessity: [facility] [place]itis, bacterial 4 days: pt found down by roommates,, obtunded not responding - does recoil to pain, poss appendicitis, cholecystitis( will f/u when improved) . cell counts consistent with acute bacterial meningitis anticipate > 2 MN ongoing med nec care
[2018-06-02] MEDS ORDERED: ADDERALL 10 MG TAB PO PRN (10:39)
--- NOTE | 2018-06-02 12:57 | HOSPPROG ---
Hospitalist Progress Note Assessment/Plan: 22 yo M with no significant PMH presenting with acute encephalopathy found to be 2/2 bacterial meningitis # bacterial meningitis: - Started empirically on vanc/ceftriaxone and initially acyclovir though given initial culture data ID did not feel this needed to be continued currently - S/p LP, fluid cultures and gram stain pending - ID following, recommend continuing Vancomyin, Ceftriaxone, and Fluconazole - ID ordered MRI brain this morning to evaluate for other possible source # metabolic encephalopathy: Improving as of this morning, in the setting of bacterial meningitis as above and severe, has been started on abx and given dexamethasone x 1. # septic shock: elevated wbc, end organ dysfunction and initial lactate of > 7 that has trended down s/p fluid resuscitation, will continue to trend, continue IVF/abx as above, MAPs have been high so no need for pressors # ? appendicitis: in review with surgery, imaging findings are relatively benign and unlikely to be the true etiology for his presentation given alternative explanation, will monitor abdominal pain, surgery has signed off # acalculous cholecystitis: in the setting of meningitis as above, monitoring, as above plan for surgery deferred at this point given above # hyperbilirubinemia: largely unconjugated and with otherwise normal LFTs, ? due to sepsis versus [place], will trend # polycythemia: likely due to volume depletion, will trend # IP status Subjective: Patient sleeping upon examination this morning, but arouses easily and answers questions appropriately Objective: Vital Signs Temp Pulse Resp BP Pulse Ox 36.5 C 64 12 104/47 L 98 06/02/18 07:00 06/02/18 09:47 06/02/18 09:47 06/02/18 09:47 06/02/18 09:47 Microbiology 06/01/18 18:31 Gram Stain - Final Cerebral Spinal Fluid Laboratory Results 06/02/18 04:30 06/02/18 04:30 06/01/18 06/02/18 06/03/18 05:59 05:59 05:59 Intake Total 6803 Output Total 4535 Balance 2268 PT REJ 06/01/18 14:49 INR REJ 06/01/18 14:49 - Physical Exam Constitutional: no apparent distress Eyes: PERRL Ears, Nose, Mouth, Throat: moist mucous membranes Cardiovascular: regular rate and rhythym Respiratory: no respiratory distress Gastrointestinal: soft, non-tender abdomen Skin: warm Musculoskeletal: pain with ROM Neurologic: AAOx3 Psychiatric: interacting appropriately ICD10 Worksheet Patient Problems: Problems Problem Status Onset Altered mental status Acute Meningitis Acute Vomiting Acute
[2018-06-02] MEDS ORDERED: GADOBUTROL 10 ML VIAL IVP ONE (14:21)
--- NOTE | 2018-06-02 15:03 | GCON ---
PULMONARY/CRITICAL CARE CONSULTATION DATE OF CONSULTATION: 06/02/2018 REFERRING PHYSICIAN: Hola Ty DO REASON FOR REFERRAL: Evaluation and management of altered mental status with meningitis and sepsis. HISTORY: The patient is a 22-year-old male, who was in his usual state of excellent health, when 2 days ago, he reported to his brother that he was feeling achy and not well. He was found yesterday afternoon by his roommates and was obtunded. He was brought into the emergency department last night, where an evaluation showed a possible thickened appendix. An abdominal exploration was tentatively planned, but an LP was performed and was markedly positive, with over 10,000 white blood cells, but no definitive organism. The patient was started on empiric antibiotics, given IV fluids, and was transported to the intensive care unit. He has become somewhat more arousable and is able to follow some simple commands. PAST MEDICAL HISTORY: Negative. MEDICATIONS: At the time of admission, none. He is currently on vancomycin, ceftriaxone and fluconazole. ALLERGIES: Bees. SOCIAL HISTORY: The patient is from [place]. There is no tobacco or drug use , but he has some alcohol use. A few weeks ago, he was up at a local cabin where brush was being cleared, but there were no discrete animal or animal dropping exposures. FAMILY HISTORY: Unremarkable. REVIEW OF SYSTEMS: Unable to obtain due to inconsistent response from the patient and somnolence. PHYSICAL EXAMINATION: GENERAL: The patient is somnolent, but arousable and follows some simple commands. VITAL SIGNS: His blood pressure is 194/53, with a heart rate of 55. He is afebrile. Oxygen saturations are 97% on room air. HEENT: Normocephalic and atraumatic. No icterus. NECK: No JVD. Trachea is midline. CHEST: Clear to auscultation. CARDIAC: Regular rate and rhythm without murmur. ABDOMEN: Soft, nontender. Bowel sounds are present. EXTREMITIES: No clubbing, cyanosis, or edema. NEURO: The patient is somnolent , but arousable. He has generalized weakness, but no focal weakness. LABORATORY: Chemistry group is unremarkable. White blood count is 24.0, with 14% bands, down from a white blood count of 27.4 yesterday. Hemoglobin is 14.6. Platelet count is 121. Serum lactate is 2.5, down from 7.4 at admission. An LP shows 11,500 white blood cells, mostly neutrophils, with a glucose that is slightly low at 44 and a protein that is elevated at 539. A tox screen is negative and HIV test is negative. CSF Gram stain shows no discrete organisms. Cultures are pending. A chest x-ray is normal. Images reviewed by me. ASSESSMENT: 1. Meningitis. This appears to be bacterial given the markedly elevated CSF white blood count, mostly neutrophils. The patient has been started empirically on ceftriaxone and vancomycin. However, tests for atypical bacterial pathogens have been negative, with culture pending. Infectious Disease has been consulted and is following the patient. 2. Sepsis. The patient initially presented with episodes of hypotension, as well as lactic acidosis and a markedly elevated white blood count. This has improved with fluid resuscitation and empiric antibiotics for meningitis. RECOMMENDATIONS: Continue empiric antibiotics and IV fluids. Check an MRI of the brain to exclude other causes for the patient's meningitis, including mastoiditis or sinusitis. /[id number]/MODL MTDD
--- NOTE | 2018-06-02 18:32 | PCMIDPN ---
Assessment/Plan: Assessment/Plan: * Meningitis: CSF with marked pleocytosis of neutrophil predominance most compatible with bacterial meningitis. Review of CSF Gram stain shows possible rare Gram-positive diplococci. Other large Gram-positive structures raised concern of yeast or degenerative neutrophils. Most likely pathogens in this setting would be either Streptococcus pneumoniae or Neisseria meningitidis. Patient without any discrete risk factors for fungal meningitis. CSF was sent for PCR at [facility] which was negative for typical bacterial pathogens including Streptococcus pneumoniae and Neisseria meningitidis and for Cryptococcus. Patient is showing clinical improvement with antibiotic therapy and corticosteroids. MRI of the brain performed earlier today shows no abnormalities. Will continue vancomycin, ceftriaxone and fluconazole with continued followup of cultures as available. Anticipate likely will be able to narrow antibiotic therapy over next 24-48 hours. Will assess quantitative immunoglobulins. Time spent, greater than 35 min, of which greater than half was spent in education/counseling/coordination of care related to meningitis, microbiologic data including CSF Gram stain and PCR findings, participation in ICU rounds, and discussion of clinical findings and plan of care with patient and family. 06/02/18 18:28 06/02/18 18:33 Subjective: Patient more awake this afternoon. Complains of headache and neck stiffness. Presenting symptoms and history reviewed as outlined by Dr. Levy in his consultation. Traveled to [facility] in [facility] approximately 2.5-3 weeks ago; he did not actually participate in any brush removal. No visible wrote an activity in [facility]. [facility] No [facility] exposure. No ill contacts. No unusual animal exposures. Previous receipt of childhood vaccinations. Dental cleaning in April. Objective: Vital Signs Temp Pulse Resp BP Pulse Ox 36.6 C 55 L 14 105/68 96 06/02/18 16:00 06/02/18 17:00 06/02/18 17:00 06/02/18 17:00 06/02/18 17:00 Microbiology 06/01/18 18:31 Gram Stain - Final Cerebral Spinal Fluid Laboratory Results 06/02/18 04:30 06/02/18 04:30 06/01/18 06/02/18 06/03/18 05:59 05:59 05:59 Intake Total 6803 1650 Output Total 4535 1600 Balance 2268 50 Vancomycin # 1 Ceftriaxone # 1 Fluconazole # 1 CSF Gram stain reviewed with possible rare gram-positive diplococci; other large Gram-positive structures may represent degenerative white blood cells versus yeast forms CSF culture no growth to date Blood cultures x2 no growth to date CSF PCR panel at [facility] negative MRI of brain normal HIV antibody negative Laboratory Tests 06/01/18 06/01/18 06/02/18 18:31 18:31 04:30 Total Bilirubin 1.4 AST 30 ALT 28 Alkaline Phosphatase 55 Albumin 3.6 CSF WBC 82906 H CSF RBC 458 H CSF Neutrophils % 95 H CSF Glucose 44 L CSF Total Protein 539 H - Physical Exam General Appearance: non-toxic, other (Fatigued appearance, interact slowly but appropriately when questioned) EENT: PERRL/EOMI, No scleral icterus, No thrush, No conjunctival petechiae Respiratory: lungs clear, No respiratory distress Neck: meningismus Cardiac/Chest: regular rate, rhythm, No systolic murmur Extremities: No inflammation Abdomen: non-tender, No distended Skin: No rash, No embolic lesions Neuro/Psych: other (Oriented to hospital, month, and year; able to perform simple math; able to name president; able to name objects without difficulty) ICD10 Worksheet Patient Problems: Problems Problem Status Onset Altered mental status Acute Meningitis Acute Vomiting Acute
[2018-06-03] MEDS: ACETAMINOPHEN 325 MG TAB PO PRN ×3 (01:12→22:08)
[2018-06-03] MEDS: VANCOMYCIN 1.25 GM in NS 250 ML IV SCH ×3 (05:00→20:45)
[2018-06-03 05:41] LABS: PLATELET COUNT 123 10^3/uL (150-400)
[2018-06-03] MEDS ORDERED: NACL IV SCH (08:00)
[2018-06-03] MEDS ORDERED: FLUCONAZOLE IV SCH (08:00)
--- NOTE | 2018-06-03 08:32 | POSTANESTH ---
Post Anesthetic Evaluation Cardiovascular Status: Other, See Comment Respiratory Status: Other, See Comment Level of Consciousness/Mental Status: Other, See Comment Complications Possibly Related to Anesthesia: Other, See Comments (Pt did not have anesthesia)
[2018-06-03] MEDS ORDERED: FLUCONAZOLE/NaCl 200 ML IV SCH (09:00)
[2018-06-03] MEDS ORDERED: DEXAMETHASONE 10 MG/ML VIAL IVP SCH (09:40)
--- NOTE | 2018-06-03 09:46 | PCMIDPN ---
Assessment/Plan: Assessment: 22-year-old man with acute bacterial meningitis. Overall improved with cognitive function improving. No longer requiring aggressive hemodynamic support. CSF cultures without definitive growth to date. Meningitis encephalitis PCR panel negative this does not rule out pathogens on the panel. 1. Acute bacterial meningitis with septic shock, shock resolved 2. Neutrophilic leukocytosis, secondary to 1. Plan: 1. Continue ceftriaxone 2 g Q 12 2. Continue vancomycin q.8 hours dosing, goal trough 15-20 3. Start dexamethasone 10 mg IV q.6 hours 4. Continue fluconazole 5. Discussed with patient's father expected outcomes from bacterial meningitis, potential side effects of antibiotics including acute kidney injury, rash, diarrhea, C diff colitis 06/03/18 09:50 Subjective: Mild fever and chills overnight. No diarrhea or rash. Continues to have photophobia. Headache intensity remains the same. No change in nuchal rigidity. Objective: Vital Signs Temp Pulse Resp BP Pulse Ox 36.8 C 60 15 100/55 L 98 06/03/18 08:00 06/03/18 09:00 06/03/18 09:00 06/03/18 09:00 06/03/18 09:00 Microbiology 06/01/18 18:31 Gram Stain - Final Cerebral Spinal Fluid Laboratory Results 06/03/18 05:05 06/03/18 05:05 06/02/18 06/03/18 06/04/18 05:59 05:59 05:59 Intake Total 6803 2785 Output Total 4535 1600 Balance 2268 1185 Microbiology 06/01/18 18:31 Cerebral Spinal Fluid Gram Stain - Final 06/01/18 18:31 Cerebral Spinal Fluid CSF Culture - Preliminary 06/01/18 15:32 Blood Blood Culture - Preliminary 06/01/18 15:32 Blood Blood Culture - Preliminary Laboratory Tests 06/02/18 06/03/18 04:30 05:05 WBC 24.04 H 19.33 H Absolute Seg Neuts 18.75 H 14.88 H Absolute Band Neuts 3.37 H 1.93 H Absolute Lymphocytes 0.48 L 1.93 - Physical Exam General Appearance: no apparent distress (Breathing comfortably without exogenous oxygen.), non-toxic EENT: photophobia Respiratory: lungs clear, normal breath sounds, No respiratory distress, No crackles, No wheezing Neck: normal inspection, meningismus Cardiac/Chest: regular rate, rhythm, No bradycardia, No tachycardia, No diastolic murmur, No systolic murmur Extremities: normal inspection, No inflammation, No swelling, No erythema Abdomen: non-tender, soft, No guarding, No tender Back: normal inspection Skin: No rash, No erythema Neuro/Psych: alert, depressed affect (somnolent but wakes to verbal and tactile stimuli.) - Time Spent With Patient Time Spent with Patient: greater than 35 minutes (Greater than 35 min spent in the care of this patient with more than 50% of time spent in [id number] encounter. Time spent including discussing microbiology infectious meningitis with patient's father, expected outcome for bacterial meningitis including long- term secondarily, potential side effects of antibiotics. Discussed condition dexamethasone ICU physician.) Time Spent with Patient: Greater than 35 minutes spent on this patients care, greater than 50% of time spent counseling, educating, and coordinating care regarding the above mentioned plan. ICD10 Worksheet Patient Problems: Problems Problem Status Onset Altered mental status Acute Meningitis Acute Vomiting Acute
[2018-06-03] MEDS: DEXAMETHASONE 4 MG/ML VIAL IVP SCH ×3 (09:58→22:09)
--- NOTE | 2018-06-03 13:39 | HOSPPROG ---
Hospitalist Progress Note Assessment/Plan: 22 yo M with no significant PMH presenting with acute encephalopathy found to be 2/2 bacterial meningitis # bacterial meningitis: - ID following, recommend continuing Vancomyin, Ceftriaxone, and Fluconazole. Dexamethasone started 06/02 - MRI unremarkable -CSF Gram stain with G+Diplococci, -CSF PCR # metabolic encephalopathy: Improving as of this morning, in the setting of bacterial meningitis as above and severe, has been started on abx and given dexamethasone # septic shock: Resolved -elevated wbc, end organ dysfunction and initial lactate of > 7 that has trended down s/p fluid resuscitation -did not need pressors # ? appendicitis: in review with surgery, imaging findings are relatively benign and unlikely to be the true etiology for his presentation given alternative explanation, will monitor abdominal pain, surgery has signed off # acalculous cholecystitis: in the setting of meningitis as above, monitoring, as above plan for surgery deferred at this point given above # hyperbilirubinemia: -Resolved -largely unconjugated and with otherwise normal LFTs, ? due to sepsis versus [place], will trend # polycythemia: Resolved, likely due to volume depletion. Plan: Inpatient ok to transfer to med floor plan per above SCD's for DVT proph PT/OT Pain mgmt Reg Diet Subjective: still with GARCIA and mild neck pain Objective: Vital Signs Temp Pulse Resp BP Pulse Ox 36.6 C 54 L 18 118/66 98 06/03/18 11:06 06/03/18 11:06 06/03/18 11:06 06/03/18 11:06 06/03/18 11:06 Microbiology 06/01/18 18:31 Gram Stain - Final Cerebral Spinal Fluid 06/01/18 17:48 Urine Culture - Final Urine,Clean Catch Laboratory Results 06/03/18 05:05 06/03/18 05:05 06/02/18 06/03/18 06/04/18 05:59 05:59 05:59 Intake Total 6803 2785 480 Output Total 4535 1600 400 Balance 2268 1185 80 PT REJ 06/01/18 14:49 INR REJ 06/01/18 14:49 - Physical Exam Constitutional: no apparent distress Eyes: PERRL, EOMI Ears, Nose, Mouth, Throat: moist mucous membranes, hearing normal Cardiovascular: regular rate and rhythym, No edema Respiratory: no respiratory distress, no rales or rhonchi, clear to auscultation Gastrointestinal: normoactive bowel sounds, soft, non-tender abdomen Skin: warm Neurologic: AAOx3 Psychiatric: interacting appropriately, not anxious, not encephalopathic Lymph, Heme, Immunologic: No petechiae ICD10 Worksheet Patient Problems: Problems Problem Status Onset Altered mental status Acute Meningitis Acute Vomiting Acute
[2018-06-03] MEDS ORDERED: oxyCODONE IR 5 MG TAB PO PRN (13:40)
[2018-06-03] MEDS: NS 1,000 ML IV SCH (18:32)
[2018-06-04] MEDS: DEXAMETHASONE 4 MG/ML VIAL IVP SCH ×4 (04:47→22:24)
[2018-06-04] MEDS: VANCOMYCIN 1.25 GM in NS 250 ML IV SCH ×3 (04:47→20:45)
[2018-06-04 06:20] LABS: PLATELET COUNT 151 10^3/uL (150-400)
[2018-06-04] MEDS: ACETAMINOPHEN 325 MG TAB PO PRN (09:30)
--- NOTE | 2018-06-04 12:14 | ASMTCMCOM ---
CM Note CM Note Notes: CM spoke to Aaron Tracey, ID doctor. He will most likely need ivabx at time of d/c. Referral sent to [facility]. CM met w/ pts mom Kaylee in room. Kaylee is thinking that pt will stay w/ her in [place] for about a week and then he can most likely return to his apartment in [place]. CM will speak to Светлана about referral to HC agencies near [place]. CM to follow. Plan: AISSATOU Sotomayor; RN Date Signed: 06/04/2018 12:13 PM Electronically Signed By:DANITA Radford
--- NOTE | 2018-06-04 13:49 | PCMIDPN ---
Assessment/Plan: Assessment: 22-year-old man with acute bacterial meningitis. Continued improvement with transfer out of the medical ICU, but continues to have some mental clouding and confusion. No positive microbiology testing today, suspect Streptococcus salivarius recovered was a contaminant either from lab personnel or upon obtaining the CSF sample has this is a normal oral organism and only 1 colony grown the plate, and this would be an unexpected cause of community onset bacterial meningitis. Without a defined microbiologic cause we are going to be committed to both vancomycin and ceftriaxone to complete 2 weeks of therapy. 1. Acute bacterial meningitis; microbiology not defined today 2. Neutrophilic leukocytosis, secondary to 1; improved Plan: 1. Continue ceftriaxone 2 g Q 12 2. Continue vancomycin but change total dosing for the past 24 hr to a continuous infusion; check random Vancomycin level the morning of 06/05 3. Continue dexamethasone 10 mg IV q.6 hours; stop after today's doses 4. Discussed with patient and his mother expected outcomes from bacterial meningitis, potential side effects of antibiotics including acute kidney injury , rash, diarrhea, C diff colitis 5. Awaiting urine pneumococcal antigen which may help clarify microbiologic cause 06/04/18 14:00 Subjective: No fever or chills. No rashes or areas of pruritus. No nausea or diarrhea. Appetite improved but not back to normal. Feels that he still has some confusion and general fatigue. Objective: Vital Signs Temp Pulse Resp BP Pulse Ox 36.6 C 56 L 15 115/75 96 06/04/18 08:00 06/04/18 08:00 06/04/18 08:00 06/04/18 08:00 06/04/18 08:00 Microbiology 06/01/18 18:31 Gram Stain - Final Cerebral Spinal Fluid 06/01/18 17:48 Urine Culture - Final Urine,Clean Catch Laboratory Results 06/04/18 05:15 06/03/18 05:05 06/03/18 06/04/18 06/05/18 05:59 05:59 05:59 Intake Total 2785 1260 Output Total 1600 400 350 Balance 1185 860 -350 Microbiology 06/01/18 18:31 Cerebral Spinal Fluid Gram Stain - Final 06/01/18 18:31 Cerebral Spinal Fluid Gram Stain - Final 06/01/18 18:31 Cerebral Spinal Fluid CSF Culture - Preliminary Streptococcus Salivarius Group 06/01/18 18:31 Cerebral Spinal Fluid CSF Culture - Preliminary Streptococcus Salivarius Group Laboratory Tests 06/01/18 06/01/18 06/02/18 14:05 18:31 09:48 WBC Absolute Neuts (auto) Absolute Lymphs (auto) Absolute Seg Neuts Absolute Band Neuts Creatinine CSF Cryptococcus Ag Scrn Negative Vancomycin Trough Cryptococcus Ag Screen Negative Urine Histoplasma Ag Pending HIV 1&2 Antibody NEGATIVE Ur Strep pneumoniae Ag 06/03/18 06/03/18 06/03/18 05:05 05:05 10:00 WBC 19.33 H Absolute Neuts (auto) Absolute Lymphs (auto) Absolute Seg Neuts 14.88 H Absolute Band Neuts 1.93 H Creatinine 0.7 CSF Cryptococcus Ag Scrn Vancomycin Trough Cryptococcus Ag Screen Urine Histoplasma Ag HIV 1&2 Antibody Ur Strep pneumoniae Ag Pending 06/03/18 06/04/18 11:00 05:15 WBC 8.88 Absolute Neuts (auto) 8.04 H Absolute Lymphs (auto) 0.59 L Absolute Seg Neuts Absolute Band Neuts Creatinine CSF Cryptococcus Ag Scrn Vancomycin Trough 16.7 Cryptococcus Ag Screen Urine Histoplasma Ag HIV 1&2 Antibody Ur Strep pneumoniae Ag - Physical Exam General Appearance: alert (Sitting up in the chair conversing normally with some somnolence), no apparent distress, non-toxic EENT: No scleral icterus Respiratory: lungs clear, normal breath sounds, No respiratory distress, No crackles, No wheezing Neck: non-tender, supple Cardiac/Chest: regular rate, rhythm, No bradycardia, No tachycardia, No diastolic murmur, No systolic murmur Extremities: normal inspection Abdomen: normal bowel sounds, non-tender, soft, No distended, No guarding Skin: normal color, No jaundice, No rash Neuro/Psych: alert (Patient alert with some somnolence, states he does feel his cognition is not back to normal and feels a bit confused although he is completely awake and interactive and answers questions appropriately) - Time Spent With Patient Time Spent with Patient: greater than 35 minutes Time Spent with Patient: Greater than 35 minutes spent on this patients care, greater than 50% of time spent counseling, educating, and coordinating care regarding the above mentioned plan. ICD10 Worksheet Patient Problems: Problems Problem Status Onset Altered mental status Acute Meningitis Acute Vomiting Acute
--- NOTE | 2018-06-04 15:36 | HOSPPROG ---
Hospitalist Progress Note Assessment/Plan: 22 yo M with no significant PMH presenting with acute encephalopathy found to be 2/2 bacterial meningitis # bacterial meningitis: - ID following, recommend continuing Vancomyin, Ceftriaxone, and Dexamethasone - Fluconazole stopped on 06/03 - MRI unremarkable -CSF Gram stain with G+Diplococci, -CSF PCR # metabolic encephalopathy: resolved # septic shock: Resolved -elevated wbc, end organ dysfunction and initial lactate of > 7 that has trended down s/p fluid resuscitation -did not need pressors # ? appendicitis: in review with surgery, imaging findings are relatively benign and unlikely to be the true etiology for his presentation given alternative explanation, will monitor abdominal pain, surgery has signed off -normal exam today # acalculous cholecystitis: in the setting of meningitis as above, monitoring, as above plan for surgery deferred at this point given above -normal exam today # hyperbilirubinemia: -Resolved -largely unconjugated and with otherwise normal LFTs, ? due to sepsis versus [place], will trend # polycythemia: Resolved, likely due to volume depletion. Plan: Inpatient ok to transfer to med floor will need to determine emt intermediate abx strategy once discharge. SCD's for DVT proph PT/OT Pain mgmt Reg Diet Dispo: per ID, can d/c hopefully soon Subjective: no cp or sob. more awake. alert Objective: Vital Signs Temp Pulse Resp BP Pulse Ox 36.6 C 56 L 15 115/75 96 06/04/18 08:00 06/04/18 08:00 06/04/18 08:00 06/04/18 08:00 06/04/18 08:00 Microbiology 06/01/18 18:31 Gram Stain - Final Cerebral Spinal Fluid 06/01/18 17:48 Urine Culture - Final Urine,Clean Catch Laboratory Results 06/04/18 05:15 06/03/18 05:05 06/03/18 06/04/18 06/05/18 05:59 05:59 05:59 Intake Total 2785 1260 Output Total 1600 400 350 Balance 1185 860 -350 PT REJ 06/01/18 14:49 INR REJ 06/01/18 14:49 - Physical Exam Constitutional: no apparent distress Eyes: PERRL, EOMI Ears, Nose, Mouth, Throat: moist mucous membranes, hearing normal Cardiovascular: regular rate and rhythym, no murmur, rub, or gallop Respiratory: no respiratory distress, no rales or rhonchi, clear to auscultation Gastrointestinal: normoactive bowel sounds, soft, non-tender abdomen Skin: warm Neurologic: AAOx3 Psychiatric: interacting appropriately, not anxious, not encephalopathic Lymph, Heme, Immunologic: No petechiae ICD10 Worksheet Patient Problems: Problems Problem Status Onset Altered mental status Acute Meningitis Acute Vomiting Acute
[2018-06-04] MEDS ORDERED: ALTEPLASE 2 MG VIAL IVP PRN (15:40)
[2018-06-04] MEDS ORDERED: [UNRECOGNIZED DRUG - OTHER] IV SCH (20:00)
[2018-06-04] MEDS ORDERED: VANCOMYCIN IV SCH (20:00)
[2018-06-04] MEDS ORDERED: NS IV SCH (20:00)
[2018-06-05] MEDS: DEXAMETHASONE 4 MG/ML VIAL IVP SCH ×4 (04:55→22:31)
[2018-06-05] MEDS: VANCOMYCIN 1.25 GM in NS 250 ML IV SCH ×3 (04:55→20:01)
[2018-06-05] MEDS: NS 1,000 ML IV SCH (09:18)
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
--- NOTE | 2018-06-05 12:50 | ASMTCMCOM ---
CM Note CM Note Notes: Spoke with Dr. Cook who states patient will need 2 IV ABX at discharge. Per Dr. Cook:1)Vanco 3.75 grams Q 24 and 2)subtraxone IV 2 grams Q12. These doses may be adjusted slightly at the time of d/c. Dr. Cook anticipates patient may be ready to go 06/07/18. Spoke with Johnna at [facility] to give her the updates. Johnna states their nurse in [place] can service this patient and we will not need to get a home health care agency for such. Patient will be staying with his mom, Kaylee in [place], [place] to finish his treatment before returning to his apartment in [place]. Discharge plan is patient stay with his mother while receiving IV ABX to be provided by [facility]. CM will follow. Date Signed: 06/05/2018 12:49 PM Electronically Signed By:Radha Poon LCSW
[2018-06-05] MEDS: ACETAMINOPHEN 325 MG TAB PO PRN (15:12)
--- NOTE | 2018-06-05 15:37 | HOSPPROG ---
Hospitalist Progress Note Assessment/Plan: 22 yo M with no significant PMH presenting with acute encephalopathy found to be 2/2 bacterial meningitis # bacterial meningitis, Bacterial etiology remains unclear - ID following, -Vancomyin, Ceftriaxone x 2 weeks -cont Dexamethasone - Fluconazole stopped on 06/03 - MRI unremarkable -CSF Gram stain with G+Diplococci, -CSF PCR # metabolic encephalopathy: resolved -having a cognitive eval today # septic shock: Resolved -elevated wbc, end organ dysfunction and initial lactate of > 7 that has trended down s/p fluid resuscitation -did not need pressors # ? appendicitis: in review with surgery, imaging findings are relatively benign and unlikely to be the true etiology for his presentation given alternative explanation, will monitor abdominal pain, surgery has signed off -normal exam today # acalculous cholecystitis: in the setting of meningitis as above, monitoring, as above plan for surgery deferred at this point given above -normal exam today # hyperbilirubinemia: -Resolved -largely unconjugated and with otherwise normal LFTs, ? due to sepsis versus [place], will trend # polycythemia: Resolved, likely due to volume depletion. #Acidosis: repeat BMP in a.m. Has had good oral intake. no longer on IVF's. Cr ok. electrolytes ok Plan: Inpatient abx per ID PICC place today SCD's for DVT proph PT/OT Pain mgmt Reg Diet Dispo: per ID, can d/c hopefully soon Subjective: is about to have a cognitive screening test. no cp or sob. Objective: Vital Signs Temp Pulse Resp BP Pulse Ox 36.5 C 72 16 125/70 H 97 06/05/18 07:24 06/05/18 07:24 06/05/18 07:24 06/05/18 07:24 06/05/18 07:24 Microbiology 06/01/18 18:31 Gram Stain - Final Cerebral Spinal Fluid Laboratory Results 06/04/18 05:15 06/05/18 11:40 06/04/18 06/05/18 06/06/18 05:59 05:59 05:59 Intake Total 1260 1350 Output Total 400 350 Balance 860 1000 PT REJ 06/01/18 14:49 INR REJ 06/01/18 14:49 - Physical Exam Constitutional: no apparent distress Eyes: PERRL Ears, Nose, Mouth, Throat: moist mucous membranes Cardiovascular: regular rate and rhythym Respiratory: no respiratory distress, no rales or rhonchi, clear to auscultation Gastrointestinal: normoactive bowel sounds, soft, non-tender abdomen Skin: warm Neurologic: AAOx3 Psychiatric: interacting appropriately, not anxious, not encephalopathic Lymph, Heme, Immunologic: No petechiae ICD10 Worksheet Patient Problems: Problems Problem Status Onset Altered mental status Acute Meningitis Acute Vomiting Acute
[2018-06-06] MEDS: DEXAMETHASONE 4 MG/ML VIAL IVP SCH ×4 (04:34→21:52)
[2018-06-06] MEDS: VANCOMYCIN 1.25 GM in NS 250 ML IV SCH (04:34)
--- NOTE | 2018-06-06 10:43 | PCMIDPN ---
Assessment/Plan: Assessment/Plan: * Meningitis: CSF with marked pleocytosis of neutrophil predominance most compatible with bacterial meningitis. Please see my note dated 06/05/2018 for full details. Patient with continued gradual improvement. Suspect strep salivarius most likely represents contaminant rather than true pathogen in this setting. No defined etiology by CSF culture otherwise or with CSF PCR testing or serum serologic testing. Plan to complete 14 days of vancomycin and ceftriaxone to cover typical bacterial pathogens including potential of drug- resistant Streptococcus pneumoniae. Will begin continuous infusion vancomycin today with plan right level in a.m. to ensure appropriate dosing prior to discharge. Side effects of vancomycin including potential for allergic reactions, rash, kidney toxicity, laboratory abnormalities, or hearing loss discussed with patient. Side effects of ceftriaxone including allergic reactions, skin rash, drug fever, biliary sludging, and potential for changes in blood count/liver tests/kidney test discussed with patient today. Risk and benefits of PICC line including potential for PICC associated infection or DVT discussed with patient and mother today. Anticipate discharge home are to complete 7 additional days of vancomycin and ceftriaxone. Will arrange for follow-up in our office next week for ongoing care. Time spent, greater than 35 min, of which greater than half was spent in education/counseling/coordination of care related to meningitis and ongoing plan of care including plan for 2 weeks of vancomycin and ceftriaxone. 06/06/18 10:41 Subjective: Patient continues to feel clinically improved. No residual headache or neck stiffness. Photophobia is resolving. Tolerating diet. Objective: Vital Signs Temp Pulse Resp BP Pulse Ox 36.5 C 66 15 129/66 H 96 06/06/18 07:29 06/06/18 07:29 06/06/18 07:29 06/06/18 07:29 06/06/18 07:29 Microbiology 06/01/18 18:31 Gram Stain - Final Cerebral Spinal Fluid Laboratory Results 06/04/18 05:15 06/06/18 04:48 06/05/18 06/06/18 06/07/18 05:59 05:59 05:59 Intake Total 1350 1556 472 Output Total 350 450 Balance 1000 1556 22 Vancomycin # 6 Ceftriaxone # 6 CSF culture with 1 colony of Streptococcus salivarius Blood cultures x2 no growth CSF cryptococcal antigen negative Urine Histoplasma antigen negative Serum Coccidioides antibody pending CSF Blastomyces antigen not able to be performed due to small available sample size - Physical Exam General Appearance: alert, no apparent distress EENT: PERRL/EOMI, No scleral icterus, No thrush, No conjunctival petechiae Respiratory: lungs clear, No respiratory distress Cardiac/Chest: regular rate, rhythm, systolic murmur (2/6 ejection murmur left upper sternal border) Extremities: No inflammation Abdomen: non-tender, No distended Skin: No rash, No embolic lesions Neuro/Psych: No no motor/sensory deficits, No confused ICD10 Worksheet Patient Problems: Problems Problem Status Onset Altered mental status Acute Meningitis Acute Vomiting Acute
--- NOTE | 2018-06-06 10:49 | PDIAF ---
- Diagnosis Diagnosis: Meningitis Code Status: Full Code - Medication Management Medical Services Assistant Antibiotics: Vancomycin 3.75 g IV Q24hr by continuous infusion, ceftriaxone 2 g IV q12h [facility] Antibiotic Stop Date: 06/14/18 Discharge Medications: electronically signed and located in the Home Medication List. PICC Care - Routine: Yes - Orders Services needed: Home [facility] Care Face to Face: I certify that this patient was under my care and that I had the required [id number] encounter meeting the encounter requirements on the discharge day. My findings support the fact that the patient is homebound as defined in Home Care Face to Face Continued: CMS Chapter 7 Medicare Benefits Manual 30.1.1 , The condition of the patient is such that there exists a normal inability to leave home and consequently, leaving home would require a considerable and taxing effort. Isolation Type: None - Labs/Radiology CBC w/diff Date: 06/09/18 CMP Date: 06/09/18 Vanco Random Date: 06/09/18 Other Lab Name, Date and Time: Vancomycin random 06/12/2018 Call or Fax Lab and Imaging Results to: Dr. Levy, - Follow Up Care Current Providers and Referrals: Patient,NotPresent [Primary Care Provider] - As per Instructions
[2018-06-06] MEDS: VANCOMYCIN IV SCH (11:30)
[2018-06-06] MEDS: NS IV SCH (11:30)
[2018-06-06] MEDS: [UNRECOGNIZED DRUG - OTHER] IV SCH (11:30)
--- NOTE | 2018-06-06 12:13 | HOSPPROG ---
Hospitalist Progress Note Assessment/Plan: 22 yo M with no significant PMH presenting with acute encephalopathy found to be 2/2 bacterial meningitis # bacterial meningitis, Bacterial etiology remains unclear - ID following, -Vancomyin, Ceftriaxone x 2 weeks -cont Dexamethasone - Fluconazole stopped on 06/03 - MRI unremarkable -CSF Gram stain with G+Diplococci, -CSF PCR - Plan per ID is to begin continuous infusion vancomycin today with plan to check level tomorrow morning to ensure appropriate dosing prior to discharge # metabolic encephalopathy: resolved # septic shock: Resolved -elevated wbc, end organ dysfunction and initial lactate of > 7 that has trended down s/p fluid resuscitation -did not need pressors # ? appendicitis: in review with surgery, imaging findings are relatively benign and unlikely to be the true etiology for his presentation given alternative explanation, will monitor abdominal pain, surgery has signed off -normal exam today # acalculous cholecystitis: in the setting of meningitis as above, monitoring, as above plan for surgery deferred at this point given above -normal exam today # hyperbilirubinemia: -Resolved -largely unconjugated and with otherwise normal LFTs, ? due to sepsis versus [place], will trend # polycythemia: Resolved, likely due to volume depletion. #Acidosis: repeat BMP in a.m. Has had good oral intake. no longer on IVF's. Cr ok. electrolytes ok Plan: Inpatient abx per ID PICC place today SCD's for DVT proph PT/OT Pain mgmt Reg Diet Dispo: per ID, can d/c hopefully tomorrow Subjective: Patient reports no complaints this AM Objective: Vital Signs Temp Pulse Resp BP Pulse Ox 36.5 C 66 15 129/66 H 96 06/06/18 07:29 06/06/18 07:29 06/06/18 07:29 06/06/18 07:29 06/06/18 07:29 Microbiology 06/01/18 18:31 Gram Stain - Final Cerebral Spinal Fluid Laboratory Results 06/04/18 05:15 06/06/18 04:48 06/05/18 06/06/18 06/07/18 05:59 05:59 05:59 Intake Total 1350 1556 472 Output Total 350 450 Balance 1000 1556 22 PT REJ 06/01/18 14:49 INR REJ 06/01/18 14:49 - Physical Exam Constitutional: no apparent distress Eyes: PERRL Ears, Nose, Mouth, Throat: moist mucous membranes, hearing normal Cardiovascular: regular rate and rhythym Respiratory: no respiratory distress Gastrointestinal: normoactive bowel sounds Musculoskeletal: full muscle strength Neurologic: AAOx3 Psychiatric: interacting appropriately ICD10 Worksheet Patient Problems: Problems Problem Status Onset Altered mental status Acute Meningitis Acute Vomiting Acute
[2018-06-06] MEDS: ACETAMINOPHEN 325 MG TAB PO PRN (16:05)
[2018-06-07] MEDS: DEXAMETHASONE 4 MG/ML VIAL IVP SCH ×2 (04:35→09:34)
[2018-06-07 05:47] LABS: PLATELET COUNT 168 10^3/uL (150-400)
[2018-06-07 09:28] VITALS: BP 125/68
[2018-06-07] MEDS: ACETAMINOPHEN 325 MG TAB PO PRN (09:52)
--- NOTE | 2018-06-07 10:50 | PCMIDPN ---
Assessment/Plan: Assessment/Plan: * Meningitis: Continued clinical improvement. Some complaint of more high- pitched sound to voice is yesterday which is less prominent today. Unclear if this is related to meningitis or vancomycin therapy. Vancomycin level drawn earlier today appropriate for his ongoing treatment. Anticipate completing 14 total days of therapy (# 7/14). Side effects of antibiotics reviewed as outlined in my note 06/06/2018. Okay for patient to change ceftriaxone dosing schedule to facilitate ease of therapy. Will have my office call patient tomorrow to arrange for outpatient follow-up in our office next week. * Increased AST/ALT: Most likely related to ongoing antibiotic therapy. No clinical signs or symptoms of hepatitis. Will continue to monitor this over time with hopes will plateau. Next lab assessment scheduled for 06/09/2018. Time spent, greater than 35 min, of which greater than half was spent in education/counseling/coordination of care related to meningitis and ongoing plan of care including plan for 2 weeks of vancomycin and ceftriaxone and review of home outpatient antibiotic therapy plus elevated liver enzymes and hearing changes with plan to continue monitoring both of these over time. 06/07/18 10:40 06/07/18 10:50 Subjective: Patient continues to feel improved. Patient had sensation of voices appearing more high-pitched than normal yesterday. This seems to be less prominent today. No tinnitus. No abdominal pain, nausea, vomiting, neck stiffness or headache. Objective: Vital Signs Temp Pulse Resp BP Pulse Ox 36.6 C 70 14 125/68 H 96 06/07/18 08:00 06/07/18 08:00 06/07/18 08:00 06/07/18 08:00 06/07/18 08:00 Microbiology 06/01/18 18:31 Gram Stain - Final Cerebral Spinal Fluid Laboratory Results 06/07/18 04:33 06/07/18 04:33 06/06/18 06/07/18 06/08/18 05:59 05:59 05:59 Intake Total 1556 847 Output Total 450 Balance 1556 397 Vancomycin # 7 Ceftriaxone # 7 Terminal and total complement levels pending Laboratory Tests 06/07/18 04:33 Total Bilirubin 0.4 AST 66 H ALT 274 H Alkaline Phosphatase 76 - Physical Exam General Appearance: alert, no apparent distress EENT: PERRL/EOMI, No scleral icterus Neck: No meningismus Abdomen: non-tender, No distended Skin: No rash ICD10 Worksheet Patient Problems: Problems Problem Status Onset Altered mental status Acute Meningitis Acute Vomiting Acute
[2018-06-07] MEDS: VANCOMYCIN IV SCH (12:14)
[2018-06-07] MEDS: NS IV SCH (12:14)
[2018-06-07] MEDS: [UNRECOGNIZED DRUG - OTHER] IV SCH (12:14)
--- NOTE | 2018-06-07 15:34 | PDDCSUM ---
Discharge Summary Discharge Summary: Date of Admission: 06/01/2018 Date of Discharge: 06/07/2018 Consults: ID Procedures: LP, CT Head, MRI Brain Followup: ID Hospital Course Problem List: 22 yo M with no significant PMH presenting with acute encephalopathy found to be 2/2 bacterial meningitis # bacterial meningitis, Bacterial etiology remains unclear - ID consulted and following during admission - ID recommending Vancomyin, Ceftriaxone for total duration of 2 weeks - Fluconazole stopped on 06/03 - MRI Brain unremarkable - CSF Gram stain with G+Diplococci, -CSF PCR # metabolic encephalopathy: resolved # septic shock: Resolved -elevated wbc, end organ dysfunction and initial lactate of > 7 that has trended down s/p fluid resuscitation -did not need pressors # ? appendicitis: in review with surgery, imaging findings are relatively benign and unlikely to be the true etiology for his presentation given alternative explanation, will monitor abdominal pain, surgery has signed off -normal exam # acalculous cholecystitis: in the setting of meningitis as above, monitoring, as above plan for surgery deferred at this point given above -normal exam # hyperbilirubinemia: -Resolved -largely unconjugated and with otherwise normal LFTs, ? due to sepsis versus [place] # polycythemia: Resolved, likely due to volume depletion. #Increased AST/ALT - Most likely related to ongoing antibiotic therapy. - No clinical signs or symptoms of hepatitis. - ID aware and will monitor this, next lab assessment scheduled for 06/09/2018 Time spent on discharge was >35 minutes with >50% of time spent on patient education and counseling.
--- NOTE | 2018-06-07 22:59 | ASMTLACE ---
LACE Length of stay for Answers: 4-6 days current admission Acuity / Level of Answers: Yes Care: Did the patient have an inpatient admission? Comorbidities - select Answers: Other Notes: Bacterial meningitis all that apply # of Emergency department Answers: 1-2 visits in the last 6 months Score: 9 Date Signed: 06/07/2018 10:58 PM Electronically Signed By:Sharla Ward RN
--- NOTE | 2018-06-07 23:05 | ASMTDCNOTE ---
Case Management Discharge Discharge Order Complete? Answers: Yes Followup Appointment 06/09/2018 12:00 AM Patient to Obtain Answers: via [facility] Transportation Arranged Answers: Family/Friends Transport will Pick (Date 06/07/2018 04:00 PM & Time) EMTALA Complete Answers: No Notes: N/A Case Management Transport Answers: No Notes: N/A Form Complete Faxed Final Orders Answers: Yes Notes: Sent via [employer]; confirmed receipt with Johnna Agency/Facility Transfer Answers: Yes Notes: Sent via Report Printed & Faxed to [employer]; confirmed Receiving Agency receipt with Johnna Family Notified Answers: Yes Notes: Mother and father at bedside Discharge Comments Notes: Reviewed chart, spoke with Dr. Ty. Per MD, pt to discharge home with home health and infusion services today. Call placed to Johnna at [facility]. Confirmed start of care for today (RN/Infusion services). Per Johnna able to accept. All discharge orders and paperwork sent via [employer] and manual fax , per Johnna's request. Confirmed receipt with Johnna. Updates provided to pt and family. Teaching done on PICC line care and management. Questions answered. CM business card provided with [facility]'s phone number. No IM/LOZANO forms signed, not applicable. Pt to follow up as directed. CM available for any further issues or concerns. Discharge Plan: Home with [facility] home health and infusion services Date Signed: 06/07/2018 11:05 PM Electronically Signed By:Sharla Ward RN
--- NOTE | 2018-06-07 23:06 | ASDISCHSUM ---
Discharge Information Plan Status:IV ABX/Infusion Medically Cleared to Leave:06/06/2018 Discharge Date:06/07/2018 03:23 PM D/C Disposition:Home Health Service [facility] D/C Disposition:Home, Routine, Self-Care Projected Discharge Date:06/05/2018 11:00 AM Transportation at D/C:Family Discharge Delay Reason: Follow-Up Date:06/05/2018 11:00 AM Discharge Slot:2 - 12:01 pm - 18:00 pm Final Diagnosis:Abdominal pain, bacterial meningitis, septic shock, metabolic encephalopathy Placement Information Referral Type:Home Infusion Referral ID:[id number] Provider Name:[facility] Address 1:[address] Address 2: City:[place] Selection Factors:Patient/Family Choice State:[place] Referral Type:*Home Health Care Services Referral ID:[id number] Provider Name: Address 1: Phone Number: Address 2: Fax Number: City: Selection Factors:Patient/Family Choice State: Patient Contact Information Contact Name:FRANSISCO Relationship:Mother Address: Work Phone: City: [facility] Phone: [facility]/Zip Code: Email: Financial Information Financial Class:HMO and PPO Plans Primary Plan Desc:[facility] Primary Plan Number:[id number] Secondary Plan Desc: Secondary Plan Number: Assessment Information LACE LACE Length of stay for Answers: 4-6 days current admission Acuity / Level of Answers: Yes Care: Did the patient have an inpatient admission? Comorbidities - select Answers: Other Notes: Bacterial meningitis all that apply # of Emergency department Answers: 1-2 visits in the last 6 months Score: 9 Date Signed: 06/07/2018 10:58 PM Electronically Signed By:Sharla Ward RN [facility] Initial CM Assessment Living Arrangements What is your living Answers: With Other (Not Family) arrangement? Who do you live with? Type Of Residence What kind of residence do Answers: House you live in? Discharge Plan Comments Coordination Status Comments Notes: Patient is a 22yo single male who was found down by his roommate and brought to the hospital. Patient is being admitted for acute encephalopathy found to be 2/2 bacterial meningitis. [place] a [place] a [employer] and has [employer] insurance. He lists his mother, Kaylee, as his next of kin. 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 CM will follow. Date Signed: 06/02/2018 09:53 AM Electronically Signed By:Radha Poon LCSW [facility] CM Progress Note CM Note CM Note Notes: CM spoke to Aaron Tracey, [place] doctor. He will most likely need ivabx at time of d/c. Referral sent to [facility]. CM met w/ pts mom Kaylee in room. Kaylee is thinking that pt will stay w/ her in [place] for about a week and then he can most likely return to his apartment in [place]. CM will speak to alexander about referral to HC agencies near [place]. CM to follow. Plan: AISSATOU Sotomayor; RN Date Signed: 06/04/2018 12:13 PM Electronically Signed By:DANITA Radford [facility] CM Progress Note CM Note CM Note Notes: Spoke with Dr. Cook who states patient will need 2 IV ABX at discharge. Per Dr. Cook:1)Vanco 3.75 grams Q 24 and 2)subtraxone IV 2 grams Q12. These doses may be adjusted slightly at the time of d/c. Dr. Cook anticipates patient may be ready to go 06/07/18. Spoke with Johnna at [facility] to give her the updates. Johnna states their nurse in [place] can service this patient and we will not need to get a home health care agency for such. Patient will be staying with his mom, Kaylee in [place], [place] to finish his treatment before returning to his apartment in [place]. Discharge plan is patient stay with his mother while receiving IV ABX to be provided by [facility]. CM will follow. Date Signed: 06/05/2018 12:49 PM Electronically Signed By:Radha Poon LCSW Case Management Discharge Plan Note Case Management Discharge Discharge Order Complete? Answers: Yes Followup Appointment 06/09/2018 12:00 AM Patient to Obtain Answers: via [facility] Transportation Arranged Answers: Family/Friends Transport will Pick (Date 06/07/2018 04:00 PM & Time) EMTALA Complete Answers: No Notes: N/A Case Management Transport Answers: No Notes: N/A Form Complete Faxed Final Orders Answers: Yes Notes: Sent via [employer]; confirmed receipt with Johnna Agency/Facility Transfer Answers: Yes Notes: Sent via Report Printed & Faxed to [employer]; confirmed Receiving Agency receipt with Johnna Family Notified Answers: Yes Notes: Mother and father at bedside Discharge Comments Notes: Reviewed chart, spoke with Dr. Ty. Per MD, pt to discharge home with home health and infusion services today. Call placed to Johnna at [facility]. Confirmed start of care for today (RN/Infusion services). Per Johnna able to accept. All discharge orders and paperwork sent via [employer] and manual fax , per Johnna's request. Confirmed receipt with Johnna. Updates provided to pt and family. Teaching done on PICC line care and management. Questions answered. CM business card provided with [employer]'s phone number. No IM/LOZANO forms signed, not applicable. Pt to follow up as directed. CM available for any further issues or concerns. Discharge Plan: Home with [facility] home health and infusion services Date Signed: 06/07/2018 11:05 PM Electronically Signed By:Sharla Ward RN Intervention Information Intervention Type:Education Family/Patient Date of Service:06/07/2018 11:05 PM Patient Type:Inpatient Staff Member:ARMANDO Ward, Sharla Hours:0.25 Discipline: Severity: Comment:Teaching provided on PICC line care an d management.
== END 2018-06-07 15:23 | disposition home or self-care (01) | DRG 871 ==
LOC: EDUNIT# → F2N 21:02 → F3E 06-03 16:38
PROVIDERS: ADMIT Internal Medicine; ATTEND Internal Medicine
PROC: 009U3ZX Drainage of Spinal Canal, Percutaneous Approach, Diagnostic (ICD-10-PCS; principal; 2018-06-01)
DX: A41.9 Sepsis, unspecified organism (principal); R65.21 Severe sepsis with septic shock; G00.9 Bacterial meningitis, unspecified; G93.41 Metabolic encephalopathy; K81.9 Cholecystitis, unspecified; K37 Unspecified appendicitis; E80.6 Other disorders of bilirubin metabolism; D75.1 Secondary polycythemia
CPT/HCPCS: 80305; 82435-PO; 82565-PO; 82784-90; 82947-PO; 84132-PO; 84295-PO; 84520-PO; 85014-ER; 86161-90; 86162-90; 86635-90; 87385-90; 92507-GN; 92523-GN; 96365; 97116-GP; 97162-GP; 97166-GO; 97535-GO; A9585; C1751; G0480; J0133; J0696; J1100; J1170; J1335; J1450; J2060; J3010; J3370; J3475; Q9967

== ENCOUNTER → 2018-09-02 | Outpatient (CLI) | payer OTHER ==
[~2018-09-02] MED LIST: GADOBUTROL 10 ML VIAL IVP ONE
== END ==
DX: R41.89 Other symptoms and signs involving cognitive functions and awareness (principal); G00.9 Bacterial meningitis, unspecified; J34.1 Cyst and mucocele of nose and nasal sinus